=== PATIENT | female | born 1945 | race Caucasian/White ===

== ENCOUNTER → 2016-08-24 | Outpatient (CLI) | payer MEDICARE, BC ==
[~2016-08-24] MED LIST: Aspirin Chew PO; BENZ100 PO; BISA10SU8 PR; BRIL90TA PO; CARV6.25 PO; CELE200C PO; CETI10 PO; FOLI1 PO; GABA300C3 PO; ISOS30TA3 PO; LEFL20TA7 PO; LEUC5TAB PO; LIPI40TA PO; METH2.5 PO; OMEP20TA39 PO; OMEP40CA2 PO; PHEN12.5 PO; PRED1 PO; PROM25TA5 PO; SYMB160A INH; SYMB80AE INH; TRAM50TA PO; TRAZ100 PO; TRAZ50TA12 PO; VESI5TAB PO; VITATAB25 PO; ZITH250T PO
[2016-08-24 16:46] LABS: HEMATOCRIT 40.3 % (35.0-46.0); MEAN CELL VOLUME 94.5 FL (80.0-100.0); MEAN CORPUSCULAR HEMOGLOBIN 31.8 PG (27.0-34.0); MEAN CORPUSCULAR HGB CONC 33.7 % (32.0-36.0); PLATELET COUNT 294 TH/MM3 (150-450); RED BLOOD COUNT 4.27 MIL/MM3 (4.00-5.30); RED CELL DISTRIBUTION WIDTH 13.7 % (11.6-17.2); REVIEW FLAG FINAL; WHITE BLOOD COUNT 8.1 TH/MM3 (4.0-11.0)
[2016-08-24 17:02] LABS: ANION GAP 8 MEQ/L (5-15); AST (GOT) 16 U/L (15-37); BLOOD UREA NITROGEN 16 MG/DL (7-18); CHLORIDE 103 MEQ/L (98-107); GLOMERULAR FILTRATION RATE 85 ML/MIN (>89); POTASSIUM 3.8 MEQ/L (3.5-5.1); SODIUM (NA) 140 MEQ/L (136-145)
[2016-08-24 17:05] LABS: ALKALINE PHOSPHATASE 69 U/L (45-117); ALT (GPT) 22 U/L (10-53); TOTAL BILIRUBIN ADULT 0.4 MG/DL (0.2-1.0)
[2016-08-24 17:14] LABS: WESTERGREN SEDIMENTATION RATE 10 mm/hr (0-30)
== END ==
LOC: PLAB 14:10
PROVIDERS: ATTEND Internal Medicine Rheumatology
DX: M06.89 Other specified rheumatoid arthritis, multiple sites (principal); Z79.899 Other long term (current) drug therapy
CPT/HCPCS: 36415; 80053; 85027; 85652

== ENCOUNTER 2016-10-04 09:12 | Inpatient (IN) | payer MEDICARE, BC ==
[2016-10-04] VITALS (9 sets, daily range): BP systolic 135–169; BP diastolic 69–76; PULSE 70–94; RESP 16–22; TEMP 97.2–99.1; O2SAT 96–100
[~2016-10-04] VITALS: Ht 162.6 cm; Wt 80.5 kg
[~2016-10-04 09:12] MED LIST changes: -Aspirin Chew PO; -BENZ100 PO; -BRIL90TA PO; -CARV6.25 PO; -ISOS30TA3 PO; -LIPI40TA PO; -OMEP40CA2 PO; -SYMB80AE INH; -TRAZ50TA12 PO
[2016-10-04] MEDS ORDERED: ASPIRIN 325 MG TAB PO ONE (09:30)
[2016-10-04] MEDS ORDERED: SODIUM CHLORIDE 0.9% FLUSH 5 ML FLUSH IVF PRN (09:30)
--- NOTE | 2016-10-04 09:33 | PD ---
HPI Chief Complaint: Chest Pain Time Seen by Provider: 09:17 Travel History International Travel<30 days: No Contact w/Intl Traveler<30days: No Traveled to known affect area: No History of Present Illness HPI The patient was seen and examined in the presence of the nurse. She complains of chest pain. Duration is one week. It is intermittent spells of about 30 minutes. Non-exertionally induced. Located in center and low sternum. Feels like an aching, or that someone is punching her. No history of cardiac disease. She is asthmatic but not short of breath. Has had a dry cough for almost a month. No fevers. Symptoms are of moderate severity. No alleviating factors. PFSH Past Medical History Arthritis: Yes (R/A) COPD: Yes Diminished Hearing: No GERD: Yes Genitourinary: Yes (bladder issues) Respiratory: Yes (ASTHMA) Menopausal: Yes Social History Alcohol Use: No Tobacco Use: No Substance Use: No Allergies-Medications (Allergen,Severity, Reaction): Coded Allergies: Doxycycline (Unverified Allergy, Severe, Nausea/Vomiting, 10/04/16) Codeine (Verified Allergy, Intermediate, GI UPSET, 10/04/16) Cymbalta (Verified Allergy, Intermediate, ITCHING, 10/04/16) Oxycontin (Unverified Allergy, Unknown, Nausea/Vomiting, 10/04/16) Reported Meds & Prescriptions Reported Meds & Active Scripts Active Reported Celebrex (Celecoxib) 200 Mg Cap 200 Mg PO HS Tramadol (Tramadol HCl) 50 Mg Tab 100 Mg PO Q8HR PRN Trazodone (Trazodone HCl) 50 Mg Tab 50 Mg PO HS Omeprazole 40 Mg Cap 40 Mg PO BID Symbicort Inh (Budesonide/Formoterol Fumarate) 80-4.5 Mcg/Act Aero 1 Puff INH Q12HR Review of Systems General / Constitutional: No: Fever Eyes: No: Visual changes HENT: No: Headaches Cardiovascular: Positive: Chest Pain or Discomfort Respiratory: Positive: Cough, No: Shortness of Breath Gastrointestinal: No: Abdominal Pain Genitourinary: No: Dysuria Musculoskeletal: No: Pain Skin: No Rash Neurologic: No: Weakness Psychiatric: No: Depression Endocrine: No: Polydipsia Hematologic/Lymphatic: No: Easy Bruising Physical Exam Narrative GENERAL: Well-nourished, well-developed patient in no apparent distress. SKIN: Warm and dry. HEAD: Atraumatic. Normocephalic. EYES: Pupils equal and round. No scleral icterus. No injection or drainage. ENT: No nasal bleeding or discharge. Mucous membranes pink and moist. NECK: Trachea midline. No JVD. CARDIOVASCULAR: Regular rate and rhythm. No murmur appreciated. RESPIRATORY: No accessory muscle use. Clear to auscultation. Breath sounds equal bilaterally. GASTROINTESTINAL: Abdomen soft, non-tender, nondistended. Hepatic and splenic margins not palpable. MUSCULOSKELETAL: No obvious deformities. No clubbing. No cyanosis. No edema. NEUROLOGICAL: Awake and alert. No obvious cranial nerve deficits. Motor grossly within normal limits. Normal speech. PSYCHIATRIC: Appropriate mood and affect; insight and judgment normal. Data Data Last Documented VS Vital Signs Date Time Temp Pulse Resp B/P Pulse Ox O2 Delivery O2 Flow Rate FiO2 10/04/16 10:51 70 16 165/69 100 Room Air 10/04/16 09:15 98.0 Orders Electrocardiogram (10/04/16 09:23) Basic Metabolic Panel (Bmp) (10/04/16 09:23) Ckmb (Isoenzyme) Profile (10/04/16 09:23) Complete Blood Count With Diff (10/04/16 09:23) Prothrombin Time / Inr (Pt) (10/04/16 09:23) Act Partial Throm Time (Ptt) (10/04/16 09:23) Troponin I (10/04/16 09:23) Chest, Single Ap (10/04/16 09:23) Ecg Monitoring (10/04/16 09:23) Iv Access Insert/Monitor (10/04/16 09:23) Oximetry (10/04/16 09:23) Aspirin (Aspirin) (10/04/16 09:30) Sodium Chloride 0.9% Flush (Ns Flush) (10/04/16 09:30) Place In Observation (10/04/16 ) Vital Signs (Adult) Q4H (10/04/16 10:42) Activity Bed Rest (10/04/16 10:42) Sign Writer Hand / Telemetry .CONTINUOUS (10/04/16 10:42) Intake + Output CHAYO.QSHIFT (10/04/16 10:42) Diet Heart Healthy (10/04/16 Lunch) Sodium Chloride 0.9% Flush (Ns Flush) (10/04/16 10:45) Sodium Chloride 0.9% Flush (Ns Flush) (10/04/16 21:00) Acetaminophen (Tylenol) (10/04/16 10:45) Ondansetron Inj (Zofran Inj) (10/04/16 10:45) Basic Metabolic Panel (Bmp) (10/05/16 06:00) Complete Blood Count With Diff (10/05/16 06:00) Creatine Kinase (Cpk) (10/04/16 10:42) Creatine Kinase (Cpk) (10/04/16 16:42) Troponin I (10/04/16 10:42) Troponin I (10/04/16 16:42) Resp Oxygen Jasson C Titrat 1-4 L (10/04/16 ) Heparin Inj (Heparin Inj) (10/04/16 12:00) Naloxone Inj (Narcan Inj) (10/04/16 10:45) Consult Cardiology (10/04/16 ) Labs Laboratory Tests Test 10/04/16 09:30 White Blood Count 6.7 TH/MM3 Red Blood Count 4.22 MIL/MM3 Hemoglobin 13.5 GM/DL Hematocrit 40.1 % Mean Corpuscular Volume 95.0 FL Mean Corpuscular Hemoglobin 32.0 PG Mean Corpuscular Hemoglobin 33.7 % Concent Red Cell Distribution Width 13.6 % Platelet Count 230 TH/MM3 Mean Platelet Volume 8.2 FL Neutrophils (%) (Auto) % Lymphocytes (%) (Auto) % Monocytes (%) (Auto) % Eosinophils (%) (Auto) % Basophils (%) (Auto) % Neutrophils # (Auto) TH/MM3 Lymphocytes # (Auto) TH/MM3 Monocytes # (Auto) TH/MM3 Eosinophils # (Auto) TH/MM3 Basophils # (Auto) TH/MM3 CBC Comment AUTO DIFF Differential Total Cells 100 Counted Neutrophils % (Manual) 65 % Band Neutrophils % 2 % Lymphocytes % 26 % Monocytes % 6 % Basophils % 1 % Neutrophils # (Manual) 4.5 TH/MM3 Differential Comment FINAL DIFF MANUAL Platelet Estimate NORMAL Platelet Morphology Comment NORMAL Red Cell Morphology Comment NORMAL Prothrombin Time 10.5 SEC Prothromb Time International 1.0 RATIO Ratio Activated Partial 32.0 SEC Thromboplast Time Sodium Level 143 MEQ/L Potassium Level 3.6 MEQ/L Chloride Level 104 MEQ/L Carbon Dioxide Level 28.6 MEQ/L Anion Gap 10 MEQ/L Blood Urea Nitrogen 7 MG/DL Creatinine 0.72 MG/DL Estimat Glomerular Filtration 80 ML/MIN Rate Random Glucose 106 MG/DL Calcium Level 9.3 MG/DL Total Creatine Kinase 79 U/L Troponin I 0.11 NG/ML MDM Medical Decision Making Medical Screen Exam Complete: Yes Emergency Medical Condition: Yes Medical Record Reviewed: Yes Differential Diagnosis Differential diagnosis includes VT, angina, pericarditis, pleurisy, GERD, anxiety. Narrative Course I have reviewed the patient's electronic medical record. Patient was seen once in 2014 and once in 2016 for cough/bronchitis problems IV placed I reviewed the EKG which shows sinus rhythm with no ST elevation I reviewed the chest x-ray which is normal Extended cardiac monitoring shows sinus rhythm without ectopy CBC is normal Metabolic profile is normal CK is normal Troponin is 0.11 Coagulation studies are normal I gave her an aspirin Patient having chest pain and will require inpatient evaluation. She is a telemetry observation in as recommended by the hospitalist Dr. Kaplan. She is currently pain-free Diagnosis Primary Impression: Chest pain in adult Admitting Information Admitting Physician Requests: Observation Merritt Ravi MD Oct 04, 2016 09:33
[2016-10-04 09:39] LABS: HEMATOCRIT 40.1 % (35.0-46.0); MEAN CORPUSCULAR HGB CONC 33.7 % (32.0-36.0); PLATELET COUNT 230 TH/MM3 (150-450); RED BLOOD COUNT 4.22 MIL/MM3 (4.00-5.30); RED CELL DISTRIBUTION WIDTH 13.6 % (11.6-17.2); WHITE BLOOD COUNT 6.7 TH/MM3 (4.0-11.0)
[2016-10-04 09:40] LABS: HEMO FLAGS AUTO DIFF
--- NOTE | 2016-10-04 09:44 | RADHPO ---
EXAM DATE/TIME: 10/04/2016 09:37 [facility] COMPARISON: No previous studies available for comparison. INDICATIONS : Chest pain. MEDICAL HISTORY : asthma SURGICAL HISTORY : None. ENCOUNTER: Initial ACUITY: 1 week PAIN SCORE: 5/10 LOCATION: Bilateral chest FINDINGS: A single view of the chest demonstrates the lungs to be symmetrically aerated without evidence of mas s, infiltrate or effusion. The cardiomediastinal contours are unremarkable. Osseous structures are intact. CONCLUSION: No acute disease. Gustavo Flannery MD on October 04, 2016 at 9:42 Board Certified Radiologist. This report was verified electronically.
[2016-10-04] MEDS ORDERED: TRAZ50TA12 PO (09:53)
[2016-10-04] MEDS ORDERED: OMEP40CA2 PO (09:53)
[2016-10-04] MEDS ORDERED: SYMB80AE INH (09:53)
[2016-10-04] MEDS ORDERED: TRAM50TA PO (09:53)
[2016-10-04] MEDS ORDERED: CELE200C PO (09:53)
[2016-10-04 09:56] LABS: PROTHROMBIN TIME - PATIENT 10.5 SEC (9.8-11.6)
[2016-10-04 09:57] LABS: BICARBONATE 28.6 MEQ/L (21.0-32.0)
[2016-10-04 09:59] LABS: POTASSIUM 3.6 MEQ/L (3.5-5.1)
[2016-10-04 10:03] LABS: BANDS 2 % (0-6); BASOPHILS 1 % (0-2); NEUTROPHIL # MANUAL DIFF 4.5 TH/MM3 (1.8-7.7); PLATELET ESTIMATE SMEAR NORMAL (NORMAL); PLATELET MORPHOLOGY NORMAL (NORMAL); POLYS (SEG NEUTROPHILS) 65 % (16-70); SCAN/DIFF FINAL DIFF MANUAL; WBC DIFF SAMPLE 100
[2016-10-04] MEDS ORDERED: SODIUM CHLORIDE 0.9% FLUSH 5 ML FLUSH FLUSH PRN (10:45)
[2016-10-04] MEDS ORDERED: ACETAMINOPHEN 325 MG TAB PO PRN (10:45)
[2016-10-04] MEDS ORDERED: NALOXONE HCL 0.4 MG/ML AMP IV PRN (10:45)
[2016-10-04] MEDS ORDERED: HEPARIN SODIUM - SQ 10,000 UNITS/ML VIAL SQ SCH (12:00)
[2016-10-04] MEDS: PANTOPRAZOLE SOD 40 MG DELAYED RELEASE TAB PO SCH ×2 (12:45→21:47)
[2016-10-04] MEDS ORDERED: ENALAPRILAT 1.25 MG/ML VIAL IV PUSH PRN (12:45)
[2016-10-04] MEDS: BUDESONIDE-FORMOTEROL 80/4.5 MCG INHALER INH SCH ×2 (13:00→21:00)
[2016-10-04 16:58] LABS: HEMATOCRIT 37.8 % (35.0-46.0); MEAN CELL VOLUME 93.9 FL (80.0-100.0); MEAN CORPUSCULAR HEMOGLOBIN 32.1 PG (27.0-34.0); MEAN CORPUSCULAR HGB CONC 34.1 % (32.0-36.0); PLATELET COUNT 227 TH/MM3 (150-450); RED BLOOD COUNT 4.02 MIL/MM3 (4.00-5.30); REVIEW FLAG FINAL; WHITE BLOOD COUNT 8.4 TH/MM3 (4.0-11.0)
[2016-10-04] MEDS ORDERED: HEPARIN 25,000 UNITS-D5W 250 ML - PREMIX IV SCH (17:00)
[2016-10-04] MEDS ORDERED: HEPARIN SODIUM - IV 10,000 UNITS/10 ML VIAL IV ONE (17:00)
[2016-10-04] MEDS ORDERED: HEPARIN SODIUM - IV 10,000 UNITS/10 ML VIAL IV PRN ×2 (17:00)
[2016-10-04 17:26] LABS: APTT (PATIENT) 33.8 SEC (24.3-30.1); PROTHROMBIN TIME - PATIENT 10.8 SEC (9.8-11.6)
[2016-10-04] MEDS: ONDANSETRON HCL 4 MG/2 ML VIAL IVP PRN (18:34)
[2016-10-04] MEDS: SODIUM CHLORIDE 0.9% FLUSH 5 ML FLUSH FLUSH SCH (21:00)
[2016-10-04] MEDS: MORPHINE SULFATE 4 MG/ML INJ IV PUSH PRN (21:47)
[2016-10-04] MEDS: traZODone HCL 50 MG TAB PO SCH (21:47)
[2016-10-05] VITALS (25 sets, daily range): BP systolic 126–147; BP diastolic 63–71; PULSE 60–90; RESP 16–20; TEMP 98.1–99.3; O2SAT 96–100
[2016-10-05 00:41] LABS: APTT (PATIENT) 123.9 SEC (24.3-30.1)
[2016-10-05] MEDS: MORPHINE SULFATE 4 MG/ML INJ IV PUSH PRN ×3 (03:18→15:59)
[2016-10-05 03:49] LABS: BICARBONATE 26.8 MEQ/L (21.0-32.0); POTASSIUM 3.4 MEQ/L (3.5-5.1)
[2016-10-05 03:53] LABS: WHITE BLOOD COUNT 6.9 TH/MM3 (4.0-11.0)
[2016-10-05 03:54] LABS: AUTOMATED NEUTROPHIL # 3.4 TH/MM3 (1.8-7.7); BASOPHIL # 0.1 TH/MM3 (0-0.2); BASOPHIL % 1.3 % (0.0-2.0); EOSINOPHIL # 0.1 TH/MM3 (0-0.4); EOSINOPHIL % 1.1 % (0.0-4.0); HEMATOCRIT 36.4 % (35.0-46.0); HEMO FLAGS DIFF FINAL; LYMPH % 38.5 % (9.0-44.0); LYMPHOCYTE # 2.7 TH/MM3 (1.0-4.8); MEAN CELL VOLUME 94.3 FL (80.0-100.0); MEAN CORPUSCULAR HEMOGLOBIN 32.6 PG (27.0-34.0); MEAN CORPUSCULAR HGB CONC 34.6 % (32.0-36.0); MONO % 10.2 % (0.0-8.0); NEUT % 48.9 % (16.0-70.0); PLATELET COUNT 220 TH/MM3 (150-450); RED BLOOD COUNT 3.86 MIL/MM3 (4.00-5.30); RED CELL DISTRIBUTION WIDTH 14.3 % (11.6-17.2)
[2016-10-05 04:05] LABS: APTT (PATIENT) 117.1 SEC (24.3-30.1)
[2016-10-05 06:20] LABS: APTT (PATIENT) 59.2 SEC (24.3-30.1)
[2016-10-05] MEDS: PANTOPRAZOLE SOD 40 MG DELAYED RELEASE TAB PO SCH ×2 (08:46→21:26)
[2016-10-05] MEDS: BUDESONIDE-FORMOTEROL 80/4.5 MCG INHALER INH SCH ×2 (08:47→21:27)
[2016-10-05] MEDS: SODIUM CHLORIDE 0.9% FLUSH 5 ML FLUSH FLUSH SCH ×2 (08:47→21:00)
[2016-10-05] MEDS ORDERED: ATORVASTATIN 40 MG TAB PO SCH (09:00)
--- NOTE | 2016-10-05 10:29 | MH ---
cc: CACHORRO JACKSON MD DATE OF ADMISSION 10/04/2016 CHIEF COMPLAINT Chest pain HISTORY OF PRESENT ILLNESS This is a 71-year-old female with a past medical-surgical history significant for arthritis, COPD, history of gastroesophageal reflux disease, a urinary bladder issue, history of asthma, who came to the ER at [facility] complaining of some chest pain. This pain is going on for the last one week. It is an intermittent spell about 30 minutes known exertional induced located in the center and lower sternal feeling like an aching and has someone punching. No history of heart disease. She also has a history of asthma. She also has a dry cough for almost a month. No fever or chills. When I examined the patient, the patient had a very mild chest pain at the time of examination and denies any other symptoms or complaints. The patient is planned to go for a cardiac cath by Dr. Church and nurse Perla was present at the bedside during the history and physical examination. Other than that, nothing significant. PAST MEDICAL/SURGICAL HISTORY As dictated above. SOCIAL HISTORY Denies smoking, drinking or taking any drugs. Lives at home. She is retired. FAMILY HISTORY Significant for cancer. ALLERGIES DOXYCYCLINE, CODEINE, CYMBALTA, OXYCONTIN. MEDICATIONS 1. Celebrex 200 mg p.o. at bedtime 2. Tramadol 50 mg p.o. q8-hour 3. Trazodone 50 mg p.o. at bedtime 4. Omeprazole 40 mg p.o. daily 5. Symbicort 80/4.5 one puff inhalation q. 12-hour REVIEW OF SYSTEMS All review of systems are negative except for mild chest discomfort. PHYSICAL EXAMINATION This is a 71-year female sitting on the bed not in acute distress. VITAL SIGNS: Temperature 98.2, heart rate 73, respirations 16, blood pressure 138/71, O2 saturation 100% room air. HEENT: Normocephalic, atraumatic. EOMI. PERRL. Oral mucosa moist. NECK: Supple. No visible thyromegaly or neck mass. Trachea central. CVS: Regular rate and rhythm. Respirations clear to auscultation bilaterally. ABDOMEN: Soft, nontender. Bowel sounds audible. EXTREMITIES: No cyanosis or clubbing. Full range of motion of all extremities. NEUROLOGIC: Awake, alert, and oriented x4. No focal deficits. SKIN: Warm and dry. PSYCH: The patient is cooperative. Mood and affect is normal. LABORATORY DATA Include CBC is totally unremarkable. BMP totally unremarkable except for potassium 3.4 low, GFR 88 low. Cardiac enzymes troponin-I 0.11, 0.58 and 0.85 all high. PT 10.8, INR 1.0, APTT 59.2. Chest x-ray was done shows no acute disease. ASSESSMENT/PLAN This is a 71-year female who came to the ER diagnosed with: 1. Chest pain, rule out acute coronary syndrome. The patient has most likely [id number] myocardial infarction. The patient had a high troponin. The patient is on heparin GTT. Start the patient on aspirin 81 mg p.o. daily. The patient is planned to go to cardiac catheterization done by Dr. Church today. We will monitor the patient. 2. History of hyperlipidemia. Continue with Lipitor 40 mg p.o. daily. 3. History of insomnia. Continue Trazodone 50 mg p.o., h.s. 4. History of gastroesophageal reflux disease. Protonix 40 mg p.o. b.i.d. 5. History of COPD. Continue with Symbicort one puff inhalation [id number]. 6. History of arthritis. Continue with Celebrex 200 mg h.s. 7. DVT prophylaxis heparin GTT 8. GI prophylaxis Protonix 40 mg p.o. daily. 9. We are going to manage the patient on a daily basis and make Recommendations on a daily basis. Cachorro Jackson MD EA/JOLLY /9:51 AM /10:06 AM
[2016-10-05] MEDS: BENZONATATE 100 MG CAP PO PRN (10:52)
[2016-10-05] MEDS ORDERED: HEPARIN-NS/PF INJ 500 ML ONE ×2 (13:26→14:30)
[2016-10-05] MEDS ORDERED: MIDAZOLAM HCL 2 MG/2 ML VIAL ONE ×2 (13:26→14:46)
[2016-10-05] MEDS ORDERED: HEPARIN SODIUM - IV 10,000 UNITS/10 ML VIAL ONE (13:56)
[2016-10-05] MEDS ORDERED: TICAGRELOR 90 MG TAB PO ONE (15:07)
[2016-10-05] MEDS ORDERED: SODIUM CHLOR 0.9% 1000 ML INJ 1,000 ML IV SCH (16:22)
[2016-10-05] MEDS: ONDANSETRON HCL 4 MG/2 ML VIAL IVP PRN (16:22)
[2016-10-05] MEDS ORDERED: MISC INFORMATION XX ONE (16:30)
[2016-10-05] MEDS ORDERED: IOHEXOL 350 MG/ML 100 ML BTL (for Cath Lab) OTHER ONE (16:42)
[2016-10-05] MEDS ORDERED: IOHEXOL 350 MG/ML 50 ML BTL (for Cath Lab) OTHER ONE (16:42)
[2016-10-05] MEDS: ATORVASTATIN 80 MG TAB PO SCH (21:26)
[2016-10-05] MEDS: CARVEDILOL 6.25 MG TAB PO SCH (21:26)
[2016-10-05] MEDS: traZODone HCL 50 MG TAB PO SCH (21:26)
[2016-10-05 21:52] LABS: AUTOMATED NEUTROPHIL # 7.6 TH/MM3 (1.8-7.7); BASOPHIL # 0.1 TH/MM3 (0-0.2); BASOPHIL % 0.8 % (0.0-2.0); EOSINOPHIL % 0.3 % (0.0-4.0); HEMATOCRIT 38.2 % (35.0-46.0); HEMO FLAGS DIFF FINAL; LYMPH % 18.8 % (9.0-44.0); LYMPHOCYTE # 1.9 TH/MM3 (1.0-4.8); MEAN CELL VOLUME 93.8 FL (80.0-100.0); MEAN CORPUSCULAR HEMOGLOBIN 32.7 PG (27.0-34.0); MEAN CORPUSCULAR HGB CONC 34.8 % (32.0-36.0); MONO % 6.7 % (0.0-8.0); NEUT % 73.4 % (16.0-70.0); PLATELET COUNT 265 TH/MM3 (150-450); RED BLOOD COUNT 4.08 MIL/MM3 (4.00-5.30); RED CELL DISTRIBUTION WIDTH 14.4 % (11.6-17.2); WHITE BLOOD COUNT 10.3 TH/MM3 (4.0-11.0)
[2016-10-06] VITALS (24 sets, daily range): BP systolic 104–137; BP diastolic 48–68; PULSE 66–92; RESP 16–20; TEMP 97.9–98.5; O2SAT 96–100
[2016-10-06] MEDS: ISOSORBIDE MONONITRATE 30 MG TAB PO SCH (05:49)
[2016-10-06] MEDS: TICAGRELOR 90 MG TAB PO SCH ×3 (05:49→21:14)
[2016-10-06 06:51] LABS: AUTOMATED NEUTROPHIL # 5.8 TH/MM3 (1.8-7.7); BASOPHIL % 0.6 % (0.0-2.0); EOSINOPHIL # 0.1 TH/MM3 (0-0.4); EOSINOPHIL % 0.7 % (0.0-4.0); HEMATOCRIT 34.7 % (35.0-46.0); HEMO FLAGS DIFF FINAL; LYMPH % 18.3 % (9.0-44.0); LYMPHOCYTE # 1.5 TH/MM3 (1.0-4.8); MEAN CELL VOLUME 94.6 FL (80.0-100.0); MEAN CORPUSCULAR HEMOGLOBIN 31.8 PG (27.0-34.0); MEAN CORPUSCULAR HGB CONC 33.7 % (32.0-36.0); MONO % 8.8 % (0.0-8.0); NEUT % 71.6 % (16.0-70.0); PLATELET COUNT 230 TH/MM3 (150-450); RED BLOOD COUNT 3.67 MIL/MM3 (4.00-5.30); RED CELL DISTRIBUTION WIDTH 14.1 % (11.6-17.2); WHITE BLOOD COUNT 8.2 TH/MM3 (4.0-11.0)
--- NOTE | 2016-10-06 07:20 | MA ---
cc: GATITO SANCHEZ DATE: 10/05/2016 INDICATIONS: Non-ST elevation myocardial infarction. Class IV angina. PROCEDURE PERFORMED: 1. Retrograde left heart catheterization with left ventriculography and selective coronary angiography. 2. Angioplasty and stenting of the proximal and mid-right coronary artery. 3. Moderate sedation. ACCESS SITE: Right femoral artery. EQUIPMENT USED: A 5-Angolan pigtail catheter, 5-Angolan JL4 and AR modified coronary artery catheters. AR1 guide with side holes. Whisper and BMW wires. 1.5 and 2.0 balloons for pre-dilation. 2.5 x 30 Resolute stent at 9 to the mid-RCA. 2.5 x 30 Resolute stent at 9 to the proximal RCA. 2.5 x 22-mm Resolute at 12 at proximal and ostial RCA. MEDICATIONS: 1. Versed IV. 2. Fentanyl IV. 3. Heparin IV. 4. Nitroglycerin IC. 5. Brilinta 180 mg p.o. CONTRAST: Omnipaque 150 cc. COMPLICATIONS: None. ESTIMATED BLOOD LOSS: Less than 10 cc. METHOD OF HEMOSTASIS: AngioSeal closure. RESULTS A. HEMODYNAMICS: Heart rate 75 beats per minute. Left ventricular end-diastolic pressure 15 mmHg. Left ventricle 125/15. Aorta 125/64/92. B. LEFT VENTRICULOGRAPHY: Left ventricular ejection fraction 60%. Wall motion normal. No mitral regurgitation. C. CORONARY ANGIOGRAPHY: The left main coronary artery is patent. The left anterior descending coronary artery had 20% stenosis in the proximal portion and 95% stenosis in the mid-portion distally to a large first diagonal branch. D1 has 80% stenosis at its ostium. The left circumflex artery has 40% stenosis in the proximal portion. OM1 is patent. The right coronary artery has 99% stenosis in the proximal portion and 90% stenosis in the mid-portion. PDA patent. PLV has 30% stenosis in the mid-portion. The stenosis in the proximal RCA was 30-mm long. Pre-ARJUN flow 1, post-ARJUN flow 3, post-stenosis 0. The stenosis in the mid-RCA was 25-mm long. Pre-ARJUN flow 1, post-ARJUN flow 3, post-stenosis 0. The distal RCA initially filled by left to right collaterals. Post-intervention angiography revealed excellent patency of the stented segment and no evidence of dissection, thrombosis or distal embolization. DIAGNOSES: 1. Non-ST elevation myocardial infarction. 2. Severe multivessel coronary artery disease. 3. Preserved left ventricular systolic function. 4. Successful angioplasty and stenting of the proximal and mid-right coronary artery. DISPOSITION: Ms. Rivera underwent successful angioplasty and stenting of the severely diseased proximal and mid-right coronary artery. This was a technically difficult procedure. 150 cc of contrast was used. Due to the length of the procedure and contrast exposure, the PCI of the left anterior descending artery will be postponed to decrease the chance of contrast nephropathy. We will continue therapy with Brilinta and aspirin. We will continue aggressive modification of the cardiac risk factors. MD ESTELLE Cheng/SSB /3:21 PM /7:01 AM MTDAgnes
[2016-10-06 07:24] LABS: ALKALINE PHOSPHATASE 51 U/L (45-117); ALT (GPT) 26 U/L (10-53); ANION GAP 10 MEQ/L (5-15); AST (GOT) 31 U/L (15-37); BICARBONATE 24.5 MEQ/L (21.0-32.0); BLOOD UREA NITROGEN 6 MG/DL (7-18); CHLORIDE 106 MEQ/L (98-107); CREATINE KINASE 293 U/L (26-192); GLOMERULAR FILTRATION RATE 81 ML/MIN (>89); HDL CHOLESTEROL 58.9 MG/DL (40.0-60.0); LDL CHOLESTEROL 117 MG/DL (0-99); POTASSIUM 3.3 MEQ/L (3.5-5.1); SODIUM (NA) 140 MEQ/L (136-145); TOTAL BILIRUBIN ADULT 1.2 MG/DL (0.2-1.0)
--- NOTE | 2016-10-06 07:30 | HHI.PR ---
Subjective History of Present Illness Patient S/P cardiac catherization Non-ST elevation myocardial infarction. Severe multivessel coronary artery disease. Preserved left ventricular systolic function. Successful angioplasty and stenting of the proximal and mid-right coronary artery. C/O Anxiety started on Ativan. Review of Systems Constitutional Constitutional: Fatigue, Weakness Vitals/Results Intake & Output 10/05/16 10/05/16 10/06/16 15:00 23:00 07:00 Intake Total 1560 ml 1480 ml Output Total 1200 ml Balance 360 ml 1480 ml Intake Oral 480 ml 480 ml IV Total 1080 ml 1000 ml Output Urine Total 1200 ml # Voids 4 # Bowel Movements 0 Vital Signs Vital Signs Date Time Temp Pulse Resp B/P Pulse Ox O2 Delivery O2 Flow Rate FiO2 10/06/16 04:03 98.0 80 137/60 99 10/06/16 03:00 74 10/06/16 00:00 98.4 74 110/62 98 10/05/16 23:00 66 10/05/16 20:00 98.1 89 147/68 97 10/05/16 19:00 77 10/05/16 18:15 75 10/05/16 18:00 81 10/05/16 17:02 79 10/05/16 16:13 98.4 78 18 130/67 98 10/05/16 16:00 77 10/05/16 13:15 97 21 10/05/16 12:10 74 10/05/16 11:05 99.3 79 18 137/64 100 10/05/16 11:05 78 10/05/16 11:00 77 10/05/16 10:01 75 10/05/16 09:50 63 10/05/16 09:00 76 10/05/16 08:00 60 10/05/16 08:00 98.2 73 16 138/71 100 CBC/BMP: 10/06/16 0623 10/06/16 0628 Lab Results Laboratory Tests Test 10/05/16 10/06/16 10/06/16 21:35 06:23 06:28 White Blood Count 10.3 TH/MM3 8.2 TH/MM3 Red Blood Count 4.08 MIL/MM3 3.67 MIL/MM3 Hemoglobin 13.3 GM/DL 11.7 GM/DL Hematocrit 38.2 % 34.7 % Mean Corpuscular Volume 93.8 FL 94.6 FL Mean Corpuscular Hemoglobin 32.7 PG 31.8 PG Mean Corpuscular Hemoglobin 34.8 % 33.7 % Concent Red Cell Distribution Width 14.4 % 14.1 % Platelet Count 265 TH/MM3 230 TH/MM3 Mean Platelet Volume 8.7 FL 8.8 FL Neutrophils (%) (Auto) 73.4 % 71.6 % Lymphocytes (%) (Auto) 18.8 % 18.3 % Monocytes (%) (Auto) 6.7 % 8.8 % Eosinophils (%) (Auto) 0.3 % 0.7 % Basophils (%) (Auto) 0.8 % 0.6 % Neutrophils # (Auto) 7.6 TH/MM3 5.8 TH/MM3 Lymphocytes # (Auto) 1.9 TH/MM3 1.5 TH/MM3 Monocytes # (Auto) 0.7 TH/MM3 0.7 TH/MM3 Eosinophils # (Auto) 0.0 TH/MM3 0.1 TH/MM3 Basophils # (Auto) 0.1 TH/MM3 0.0 TH/MM3 CBC Comment DIFF FINAL DIFF FINAL Differential Comment Sodium Level 140 MEQ/L Potassium Level 3.3 MEQ/L Chloride Level 106 MEQ/L Carbon Dioxide Level 24.5 MEQ/L Anion Gap 10 MEQ/L Blood Urea Nitrogen 6 MG/DL Creatinine 0.71 MG/DL Estimat Glomerular Filtration 81 ML/MIN Rate Random Glucose 112 MG/DL Calcium Level 8.4 MG/DL Total Bilirubin 1.2 MG/DL Aspartate Amino Transf 31 U/L (AST/SGOT) Alanine Aminotransferase 26 U/L (ALT/SGPT) Alkaline Phosphatase 51 U/L Total Creatine Kinase 293 U/L Total Protein 5.9 GM/DL Albumin 3.4 GM/DL Triglycerides Level 109 MG/DL Cholesterol Level 198 MG/DL LDL Cholesterol 117 MG/DL HDL Cholesterol 58.9 MG/DL Cholesterol/HDL Ratio 3.36 RATIO Physical Exam General General Appearance: Well Developed, Well Nourished, No Acute Distress, Comfortable Eyes Eye Exam: Pupils Equal, Pupils Reactive, Sclera White, Extraocular Movement Intact Throat Throat Exam: Oral Mucosa [place] & Moist, Oral Pharynx Normal Neck Neck Exam: Neck Supple, Trachea Midline Pulmonary Resp Exam: Clear Bilaterally, Breath Sounds Equal, No Distress Cardiology CV Exam: Regular, Normal Sinus Rhythm Gastrointestinal/Abdomen GI Exam: Soft, Non-Tender, Bowel Sounds Present Musculoskeletal MS Exam: Normal Tone Integumentary Skin Exam: Clear, Warm, Dry, Intact, Normal Turgor Extremeties Extremities Exam: No Edema Neurologic Neuro Exam: Alert, Awake, Oriented, Speech Clear, Moving All Extremities, No Focal Deficits Psychiatric Psych Exam: Appropriate Responses VTE Prophylaxis VTE Prophylaxis Meds: Heparin PUD Prophylasis PUD Prophylaxis: Protonix Assessment/Plan Assessment/Plan ASSESSMENT/PLAN This is a 71-year female who came to the ER diagnosed with: 1. Chest pain, rule out acute coronary syndrome. The patient has most likely [id number] myocardial infarction. The patient had a high troponin. The patient is on heparin GTT. the patient on aspirin 81 mg p.o. daily. The patient S/P cardiac catherization Non-ST elevation myocardial infarction. Severe multivessel coronary artery disease. Preserved left ventricular systolic function. Successful angioplasty and stenting of the proximal and mid-right coronary artery. 2. History of hyperlipidemia. Continue with Lipitor 40 mg p.o. daily. 3. History of insomnia. Continue Trazodone 50 mg p.o., h.s. 4. History of gastroesophageal reflux disease. Protonix 40 mg p.o. b.i.d. 5. History of COPD. Continue with Symbicort one puff inhalation [id number]. 6. History of arthritis. Continue with Celebrex 200 mg h.s. 7. DVT prophylaxis heparin GTT 8. GI prophylaxis Protonix 40 mg p.o. daily. 9. Anxiety started on Ativan. We are going to manage the patient on a daily basis and make Recommendations on a daily basis. Discussed Condition with: Patient Cachorro Randolph MD Oct 06, 2016 07:30
[2016-10-06 07:41] LABS: CKMB 10.5 NG/ML (0.5-3.6)
[2016-10-06] MEDS: CARVEDILOL 6.25 MG TAB PO SCH ×2 (08:02→21:13)
[2016-10-06] MEDS: ASPIRIN 81 MG CHEW TAB PO SCH (08:02)
[2016-10-06] MEDS: PANTOPRAZOLE SOD 40 MG DELAYED RELEASE TAB PO SCH ×2 (08:02→21:13)
[2016-10-06] MEDS: oxyCODONE/ACETAMINOPHEN 5 MG/325 MG TAB PO PRN ×3 (08:03→21:13)
[2016-10-06] MEDS: BUDESONIDE-FORMOTEROL 80/4.5 MCG INHALER INH SCH ×2 (08:04→21:00)
[2016-10-06] MEDS: SODIUM CHLORIDE 0.9% FLUSH 5 ML FLUSH FLUSH SCH ×2 (08:04→21:00)
[2016-10-06] MEDS: ONDANSETRON HCL 4 MG/2 ML VIAL IVP PRN (08:23)
[2016-10-06] MEDS ORDERED: TICAGRELOR 90 MG TAB PO SCH (09:00)
--- NOTE | 2016-10-06 09:30 | EKG ---
Date Performed: 10/06/2016 Time Performed: 07:00:16 PTAGE: 71 years EKG: Sinus rhythm Leftward axis Anterolateral ST-T changes are nonspecific Low QRS voltages in precordial leads Border line ECG PREVIOUS TRACING : 10/05/2016 20.02 DOCTOR: David Sifuentes Interpretating Date/Time 10/06/2016 09:30:08
--- NOTE | 2016-10-06 10:40 | EKG ---
Date Performed: 10/05/2016 Time Performed: 20:02:36 PTAGE: 71 years EKG: Sinus rhythm Anterolateral ST-T changes are nonspecific Low QRS voltages in precordial leads Borderline ECG PREVIOUS TRACING : 10/04/2016 23.42 DOCTOR: David Sifuentes Interpretating Date/Time 10/06/2016 10:38:47
[2016-10-06] MEDS: LORazepam 0.5 MG TAB PO PRN ×2 (13:44→21:16)
--- NOTE | 2016-10-06 15:47 | RADRPT ---
EXAM DATE/TIME: 10/06/2016 14:36 [facility] COMPARISON: No previous studies available for comparison. INDICATIONS : Posterior base of neck to vertex of head pain for 1 day. RADIATION DOSE: 37.47 CTDIvol (mGy) MEDICAL HISTORY : Cardiovascular disease. SURGICAL HISTORY : None. ENCOUNTER: Initial ACUITY: 1 day PAIN SCALE: 3/10 LOCATION: cranial Posterior TECHNIQUE: Multiple contiguous axial images were obtained of the head. Using automated exposure control and adjustment of the mA and/or kV according to patient size, radiation dose was kept as low as reasonably achievable to obtain optimal diagnostic quality images. FINDINGS: CEREBRUM: The ventricles are normal for age. No evidence of midline shift, mass lesion, hemorrha ge or acute infarction. No extra-axial fluid collections are seen. POSTERIOR FOSSA: The cerebellum and brainstem are intact. The 4th ventricle is midline. The cer ebellopontine angle is unremarkable. EXTRACRANIAL: The visualized portion of the orbits is intact. SKULL: The calvaria is intact. No evidence of skull fracture. CONCLUSION: Negative CT scan of the head. Hugh Parrish MD FACR on October 06, 2016 at 15:43 Board Certified Radiologist. This report was verified electronically.
--- NOTE | 2016-10-06 17:57 | PD.CARD.PN ---
Subjective Subjective Remarks No CP or SOB Objective Medications Current Medications Medications (Trade) Dose Ordered Sig/Alejandro Route Start Time Stop Time Status Last Admin (NS Flush) 2 ml UNSCH PRN FLUSH 10/04/16 10:45 (NS Flush) 2 ml BID FLUSH 10/04/16 21:00 10/06/16 08:04 (Tylenol) 650 mg Q4H PRN PO 10/04/16 10:45 10/04/16 12:29 (Zofran Inj) 4 mg Q6H PRN IVP 10/04/16 10:45 10/06/16 08:23 (Narcan Inj) 0.4 mg UNSCH PRN IV 10/04/16 10:45 (Symbicort 80-4.5 Mcg Inh) 1 puff Q12HR INH 10/04/16 13:00 10/06/16 08:04 (Protonix) 40 mg BID PO 10/04/16 12:45 10/06/16 08:02 (Desyrel) 50 mg HS PO 10/04/16 21:00 10/05/16 21:26 (Vasotec Inj) 1.25 mg Q6H PRN IV PUSH 10/04/16 12:45 Morphine Sulfate 2 mg 2 mg Q4H PRN IV PUSH 10/04/16 12:45 10/05/16 15:59 (Heparin-D5W Inj) 250 ml @ 0 mls/hr TITRATE IV 10/04/16 17:00 10/04/16 17:06 (Heparin Inj) 5,000 units UNSCH PRN IV 10/04/16 17:00 (Heparin Inj) 2,500 units UNSCH PRN IV 10/04/16 17:00 (Tessalon) 100 mg TID PRN PO 10/05/16 04:15 10/05/16 10:52 (Aspirin Chew) 81 mg DAILY PO 10/06/16 09:00 10/06/16 08:02 (Coreg) 6.25 mg BID PO 10/05/16 21:00 10/06/16 08:02 (Lipitor) 80 mg HS PO 10/05/16 21:00 10/05/16 21:26 (Brilinta) 90 mg BID PO 10/06/16 06:00 10/06/16 08:02 (Imdur) 30 mg DAILY@07 PO 10/06/16 07:00 10/06/16 05:49 (Percocet 5-325 Mg) 1 tab Q6H PRN PO 10/05/16 20:00 10/06/16 14:09 (Ativan) 0.5 mg TID PRN PO 10/06/16 13:45 10/06/16 13:44 Vital Signs / I&O Vital Signs Date Time Temp Pulse Resp B/P Pulse Ox O2 Delivery O2 Flow Rate FiO2 10/06/16 16:31 18 10/06/16 12:20 98.5 82 16 120/67 100 10/06/16 12:00 78 10/06/16 11:00 92 10/06/16 10:00 82 10/06/16 09:13 20 10/06/16 09:00 80 10/06/16 08:15 98.2 90 18 125/68 100 10/06/16 08:00 88 10/06/16 07:15 97.9 90 20 125/68 100 10/06/16 07:00 80 10/06/16 06:00 74 10/06/16 05:00 88 10/06/16 04:03 98.0 80 137/60 99 10/06/16 04:00 76 10/06/16 03:00 74 10/06/16 02:00 74 10/06/16 01:00 66 10/06/16 00:00 98.4 74 110/62 98 10/06/16 00:00 66 10/05/16 23:00 66 10/05/16 22:00 80 10/05/16 21:00 84 10/05/16 20:00 98.1 89 147/68 97 10/05/16 20:00 90 10/05/16 19:00 77 10/05/16 18:15 75 10/05/16 18:00 81 I/O 10/05/16 10/05/16 10/05/16 10/06/16 10/06/16 10/06/16 07:00 15:00 23:00 07:00 15:00 23:00 Intake Total 316 ml 1560 ml 1480 ml Output Total 1200 ml Balance 316 ml 360 ml 1480 ml Intake Oral 240 ml 480 ml 480 ml IV Total 76 ml 1080 ml 1000 ml Output Urine Total 1200 ml # Voids 2 4 # Bowel Movements 0 Physical Exam GENERAL: In NAD SKIN: Warm and dry. HEAD: Normocephalic. EYES: No scleral icterus. No injection or drainage. NECK: Supple, trachea midline. No JVD or lymphadenopathy. CARDIOVASCULAR: Regular rate and rhythm without murmurs, gallops, or rubs. RESPIRATORY: Breath sounds equal bilaterally. No accessory muscle use. GASTROINTESTINAL: Abdomen soft, non-tender, nondistended. MUSCULOSKELETAL: No cyanosis, or edema. Groin stable Laboratory Laboratory Tests Test 10/05/16 10/06/16 10/06/16 21:35 06:23 06:28 White Blood Count 10.3 TH/MM3 8.2 TH/MM3 Red Blood Count 4.08 MIL/MM3 3.67 MIL/MM3 Hemoglobin 13.3 GM/DL 11.7 GM/DL Hematocrit 38.2 % 34.7 % Mean Corpuscular Volume 93.8 FL 94.6 FL Mean Corpuscular Hemoglobin 32.7 PG 31.8 PG Mean Corpuscular Hemoglobin 34.8 % 33.7 % Concent Red Cell Distribution Width 14.4 % 14.1 % Platelet Count 265 TH/MM3 230 TH/MM3 Mean Platelet Volume 8.7 FL 8.8 FL Neutrophils (%) (Auto) 73.4 % 71.6 % Lymphocytes (%) (Auto) 18.8 % 18.3 % Monocytes (%) (Auto) 6.7 % 8.8 % Eosinophils (%) (Auto) 0.3 % 0.7 % Basophils (%) (Auto) 0.8 % 0.6 % Neutrophils # (Auto) 7.6 TH/MM3 5.8 TH/MM3 Lymphocytes # (Auto) 1.9 TH/MM3 1.5 TH/MM3 Monocytes # (Auto) 0.7 TH/MM3 0.7 TH/MM3 Eosinophils # (Auto) 0.0 TH/MM3 0.1 TH/MM3 Basophils # (Auto) 0.1 TH/MM3 0.0 TH/MM3 CBC Comment DIFF FINAL DIFF FINAL Differential Comment Sodium Level 140 MEQ/L Potassium Level 3.3 MEQ/L Chloride Level 106 MEQ/L Carbon Dioxide Level 24.5 MEQ/L Anion Gap 10 MEQ/L Blood Urea Nitrogen 6 MG/DL Creatinine 0.71 MG/DL Estimat Glomerular Filtration 81 ML/MIN Rate Random Glucose 112 MG/DL Calcium Level 8.4 MG/DL Total Bilirubin 1.2 MG/DL Aspartate Amino Transf 31 U/L (AST/SGOT) Alanine Aminotransferase 26 U/L (ALT/SGPT) Alkaline Phosphatase 51 U/L Total Creatine Kinase 293 U/L Creatine Kinase MB 10.5 NG/ML Creatine Kinase MB % 3.6 % Total Protein 5.9 GM/DL Albumin 3.4 GM/DL Triglycerides Level 109 MG/DL Cholesterol Level 198 MG/DL LDL Cholesterol 117 MG/DL HDL Cholesterol 58.9 MG/DL Cholesterol/HDL Ratio 3.36 RATIO Imaging Last Impressions Head CT 10/05/16 0000 Signed Impressions: Service Date/Time: Thursday, October 06, 2016 14:36 - CONCLUSION: Negative CT scan of the head. Hugh Parrish MD FACR Chest X-Ray 10/04/16 0923 Signed Impressions: Service Date/Time: Tuesday, October 04, 2016 09:37 - CONCLUSION: No acute disease. 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 LAD PCI planned for Tue. Monitor renal fx. Increase activity. Continue aggressive risk factor modification and post [place] care. Marika Church MD Oct 06, 2016 17:57
--- NOTE | 2016-10-06 20:14 | MB ---
cc: GATITO SANCHEZ MD DATE OF CONSULTATION: 10/05/2016 REASON FOR CONSULTATION: HISTORY OF PRESENT ILLNESS: The patient is a 71 year-old white female with a history of COPD, presented to [facility] with substernal chest discomfort. She was ruled in for non ST elevation myocardial infarction and was transferred to [facility] for further evaluation. She complains of shortness of breath. She has had recent episodes of chest discomfort. PAST MEDICAL HISTORY: Positive for: 1. Arthritis. 2. COPD. 3. Gastroesophageal reflux disease 4. Asthma. MEDICATIONS AT HOME: 1. Symbicort. 2. Omeprazole. 3. Trazodone 4. Tramadol 5. Celebrex. ALLERGIES: DOXYCYCLINE CYMBALTA OXYCONTIN CODEINE SOCIAL HISTORY: The patient does not smoke. She does not drink alcohol. She is retired. She is accompanied by her family including her . FAMILY HISTORY: Negative for heart disease. REVIEW OF SYSTEMS: Otherwise negative. PHYSICAL EXAMINATION: VITAL SIGNS: Blood pressure 120/67, pulse 77 and regular. HEENT: Negative, 2+ carotid upstrokes. No bruits. LUNGS: Clear. HEART: Regular with no murmur, gallop or rub. ABDOMEN: Soft. No bruits. EXTREMITIES: Without edema. 2+ distal pulses. NEUROLOGIC: Grossly intact. EKG: The EKG is reviewed, and showed normal sinus rhythm, normal axis, diffuse ST-T changes. LABORATORY DATA: Hemoglobin 12.9, potassium 3.4, creatinine 0.66, troponin 0.11, 0.58, 0.85. DIAGNOSIS: 1. Non ST elevation myocardial infarction. 2. Dyslipidemia. 3. COPD/asthma. DISPOSITION: Mrs. Rivera has been ruled in for myocardial infarction by enzymes. She will be scheduled for cardiac catheterization and coronary intervention if necessary today. We will continue anticoagulation with heparin. I will follow her for cardiology during her hospitalization. I will also see her back for followup in our office after discharge. MD ESTELLE Cheng/CLARENCE /5:53 PM /7:48 PM [facility] CENTERAgnes
[2016-10-06] MEDS: traZODone HCL 50 MG TAB PO SCH (21:13)
[2016-10-06] MEDS: ATORVASTATIN 80 MG TAB PO SCH (21:14)
[2016-10-07] VITALS (23 sets, daily range): BP systolic 113–144; BP diastolic 54–79; PULSE 58–98; RESP 16–18; TEMP 97.4–98.7; O2SAT 97–100
[2016-10-07] MEDS: ISOSORBIDE MONONITRATE 30 MG TAB PO SCH (05:53)
[2016-10-07 06:42] LABS: AUTOMATED NEUTROPHIL # 5.4 TH/MM3 (1.8-7.7); BASOPHIL % 0.6 % (0.0-2.0); EOSINOPHIL # 0.1 TH/MM3 (0-0.4); EOSINOPHIL % 1.2 % (0.0-4.0); HEMATOCRIT 34.7 % (35.0-46.0); HEMO FLAGS DIFF FINAL; LYMPH % 18.9 % (9.0-44.0); LYMPHOCYTE # 1.5 TH/MM3 (1.0-4.8); MEAN CELL VOLUME 93.8 FL (80.0-100.0); MEAN CORPUSCULAR HEMOGLOBIN 32.8 PG (27.0-34.0); MONO % 9.3 % (0.0-8.0); PLATELET COUNT 223 TH/MM3 (150-450); RED CELL DISTRIBUTION WIDTH 14.3 % (11.6-17.2); WHITE BLOOD COUNT 7.7 TH/MM3 (4.0-11.0)
[2016-10-07 06:54] LABS: ALKALINE PHOSPHATASE 54 U/L (45-117); ALT (GPT) 29 U/L (10-53); ANION GAP 9 MEQ/L (5-15); AST (GOT) 40 U/L (15-37); BICARBONATE 24.6 MEQ/L (21.0-32.0); BLOOD UREA NITROGEN 7 MG/DL (7-18); CHLORIDE 106 MEQ/L (98-107); GLOMERULAR FILTRATION RATE 74 ML/MIN (>89); POTASSIUM 3.4 MEQ/L (3.5-5.1); SODIUM (NA) 140 MEQ/L (136-145); TOTAL BILIRUBIN ADULT 1.1 MG/DL (0.2-1.0)
--- NOTE | 2016-10-07 08:07 | HHI.PR ---
Subjective History of Present Illness Patient S/P cardiac catherization Non-ST elevation myocardial infarction. Severe multivessel coronary artery disease. Preserved left ventricular systolic function. Successful angioplasty and stenting of the proximal and mid-right coronary artery. Anxiety on Ativan. going for left heart catherization tomorrow. Review of Systems Constitutional Constitutional: Fatigue, Weakness Vitals/Results Intake & Output 10/06/16 10/06/16 10/07/16 15:00 23:00 07:00 Intake Total 840 ml 240 ml Balance 840 ml 240 ml Intake Oral 840 ml 240 ml # Voids 4 2 # Bowel Movements 1 Vital Signs Vital Signs Date Time Temp Pulse Resp B/P Pulse Ox O2 Delivery O2 Flow Rate FiO2 10/07/16 07:35 98.0 86 18 131/73 100 10/07/16 07:35 82 10/07/16 06:00 70 10/07/16 05:00 76 10/07/16 04:00 97 10/07/16 03:00 67 10/07/16 03:00 98.1 58 18 113/54 99 10/07/16 02:00 70 10/07/16 01:00 68 10/07/16 00:00 86 10/06/16 23:00 98.0 82 18 104/49 99 10/06/16 23:00 85 10/06/16 22:00 78 10/06/16 21:00 82 10/06/16 20:00 90 10/06/16 19:00 84 10/06/16 19:00 98.0 83 18 129/65 96 10/06/16 18:40 68 10/06/16 16:31 18 10/06/16 16:00 98.1 81 18 118/48 100 10/06/16 16:00 81 10/06/16 12:20 98.5 82 16 120/67 100 10/06/16 12:00 78 10/06/16 11:00 92 10/06/16 10:00 82 10/06/16 09:13 20 10/06/16 09:00 80 10/06/16 08:15 98.2 90 18 125/68 100 CBC/BMP: 10/07/16 0558 10/07/16 0558 Lab Results Laboratory Tests Test 10/07/16 05:58 White Blood Count 7.7 TH/MM3 Red Blood Count 3.70 MIL/MM3 Hemoglobin 12.1 GM/DL Hematocrit 34.7 % Mean Corpuscular Volume 93.8 FL Mean Corpuscular Hemoglobin 32.8 PG Mean Corpuscular Hemoglobin 35.0 % Concent Red Cell Distribution Width 14.3 % Platelet Count 223 TH/MM3 Mean Platelet Volume 8.9 FL Neutrophils (%) (Auto) 70.0 % Lymphocytes (%) (Auto) 18.9 % Monocytes (%) (Auto) 9.3 % Eosinophils (%) (Auto) 1.2 % Basophils (%) (Auto) 0.6 % Neutrophils # (Auto) 5.4 TH/MM3 Lymphocytes # (Auto) 1.5 TH/MM3 Monocytes # (Auto) 0.7 TH/MM3 Eosinophils # (Auto) 0.1 TH/MM3 Basophils # (Auto) 0.0 TH/MM3 CBC Comment DIFF FINAL Differential Comment Sodium Level 140 MEQ/L Potassium Level 3.4 MEQ/L Chloride Level 106 MEQ/L Carbon Dioxide Level 24.6 MEQ/L Anion Gap 9 MEQ/L Blood Urea Nitrogen 7 MG/DL Creatinine 0.77 MG/DL Estimat Glomerular Filtration 74 ML/MIN Rate Random Glucose 121 MG/DL Calcium Level 8.8 MG/DL Total Bilirubin 1.1 MG/DL Aspartate Amino Transf 40 U/L (AST/SGOT) Alanine Aminotransferase 29 U/L (ALT/SGPT) Alkaline Phosphatase 54 U/L Total Protein 6.6 GM/DL Albumin 3.7 GM/DL Physical Exam General General Appearance: Well Developed, Well Nourished, No Acute Distress, Comfortable Eyes Eye Exam: Pupils Equal, Pupils Reactive, Sclera White, Extraocular Movement Intact Throat Throat Exam: Oral Mucosa [place] & Moist, Oral Pharynx Normal Neck Neck Exam: Neck Supple, Trachea Midline Pulmonary Resp Exam: Clear Bilaterally, Breath Sounds Equal, No Distress Cardiology CV Exam: Regular, Normal Sinus Rhythm Gastrointestinal/Abdomen GI Exam: Soft, Non-Tender, Bowel Sounds Present Musculoskeletal MS Exam: Normal Tone Integumentary Skin Exam: Clear, Warm, Dry, Intact, Normal Turgor Extremeties Extremities Exam: No Edema Neurologic Neuro Exam: Alert, Awake, Oriented, Speech Clear, Moving All Extremities, No Focal Deficits Psychiatric Psych Exam: Appropriate Responses VTE Prophylaxis VTE Prophylaxis Meds: Heparin PUD Prophylasis PUD Prophylaxis: Protonix Assessment/Plan Assessment/Plan ASSESSMENT/PLAN This is a 71-year female who came to the ER diagnosed with: 1. Chest pain, rule out acute coronary syndrome. The patient has most likely [id number] myocardial infarction. The patient had a high troponin. The patient is on heparin GTT. the patient on aspirin 81 mg p.o. daily. The patient S/P cardiac catherization Non-ST elevation myocardial infarction. Severe multivessel coronary artery disease. Preserved left ventricular systolic function. Successful angioplasty and stenting of the proximal and mid-right coronary artery. going for left heart catherization tomorrow. d/w Cardiology Dr Church. 2. History of hyperlipidemia. Continue with Lipitor 40 mg p.o. daily. 3. History of insomnia. Continue Trazodone 50 mg p.o., h.s. 4. History of gastroesophageal reflux disease. Protonix 40 mg p.o. b.i.d. 5. History of COPD. Continue with Symbicort one puff inhalation [id number]. 6. History of arthritis. Continue with Celebrex 200 mg h.s. 7. DVT prophylaxis heparin GTT 8. GI prophylaxis Protonix 40 mg p.o. daily. 9. Anxiety on Ativan. Check CBC with diff CMP in AM. We are going to manage the patient on a daily basis and make Recommendations on a daily basis. Discussed Condition with: Patient Cachorro Randolph MD Oct 07, 2016 08:07
[2016-10-07] MEDS: PANTOPRAZOLE SOD 40 MG DELAYED RELEASE TAB PO SCH ×2 (09:40→20:40)
[2016-10-07] MEDS: CARVEDILOL 6.25 MG TAB PO SCH ×2 (09:40→20:41)
[2016-10-07] MEDS: TICAGRELOR 90 MG TAB PO SCH ×2 (09:40→20:40)
[2016-10-07] MEDS: ASPIRIN 81 MG CHEW TAB PO SCH (09:40)
[2016-10-07] MEDS: LORazepam 0.5 MG TAB PO PRN ×2 (09:40→20:41)
[2016-10-07] MEDS: BUDESONIDE-FORMOTEROL 80/4.5 MCG INHALER INH SCH ×2 (09:41→20:39)
[2016-10-07] MEDS: SODIUM CHLORIDE 0.9% FLUSH 5 ML FLUSH FLUSH SCH ×2 (09:41→20:42)
[2016-10-07] MEDS: oxyCODONE/ACETAMINOPHEN 5 MG/325 MG TAB PO PRN ×2 (14:01→20:40)
--- NOTE | 2016-10-07 15:03 | PD.CARD.PN ---
Subjective Subjective Remarks No CP or SOB, ambulating Objective Medications Current Medications Medications (Trade) Dose Ordered Sig/Alejandro Route Start Time Stop Time Status Last Admin (NS Flush) 2 ml UNSCH PRN FLUSH 10/04/16 10:45 (NS Flush) 2 ml BID FLUSH 10/04/16 21:00 10/07/16 09:41 (Tylenol) 650 mg Q4H PRN PO 10/04/16 10:45 10/04/16 12:29 (Zofran Inj) 4 mg Q6H PRN IVP 10/04/16 10:45 10/06/16 08:23 (Narcan Inj) 0.4 mg UNSCH PRN IV 10/04/16 10:45 (Symbicort 80-4.5 Mcg Inh) 1 puff Q12HR INH 10/04/16 13:00 10/07/16 09:41 (Protonix) 40 mg BID PO 10/04/16 12:45 10/07/16 09:40 (Desyrel) 50 mg HS PO 10/04/16 21:00 10/06/16 21:13 (Vasotec Inj) 1.25 mg Q6H PRN IV PUSH 10/04/16 12:45 Morphine Sulfate 2 mg 2 mg Q4H PRN IV PUSH 10/04/16 12:45 10/05/16 15:59 (Heparin-D5W Inj) 250 ml @ 0 mls/hr TITRATE IV 10/04/16 17:00 10/04/16 17:06 (Heparin Inj) 5,000 units UNSCH PRN IV 10/04/16 17:00 (Heparin Inj) 2,500 units UNSCH PRN IV 10/04/16 17:00 (Tessalon) 100 mg TID PRN PO 10/05/16 04:15 10/05/16 10:52 (Aspirin Chew) 81 mg DAILY PO 10/06/16 09:00 10/07/16 09:40 (Coreg) 6.25 mg BID PO 10/05/16 21:00 10/07/16 09:40 (Lipitor) 80 mg HS PO 10/05/16 21:00 10/06/16 21:14 (Brilinta) 90 mg BID PO 10/06/16 06:00 10/07/16 09:40 (Imdur) 30 mg DAILY@07 PO 10/06/16 07:00 10/07/16 05:53 (Percocet 5-325 Mg) 1 tab Q6H PRN PO 10/05/16 20:00 10/07/16 14:01 (Ativan) 0.5 mg TID PRN PO 10/06/16 13:45 10/07/16 09:40 Vital Signs / I&O Vital Signs Date Time Temp Pulse Resp B/P Pulse Ox O2 Delivery O2 Flow Rate FiO2 10/07/16 14:05 78 10/07/16 13:36 70 10/07/16 12:00 78 10/07/16 11:45 98 10/07/16 11:45 97.4 77 18 127/72 98 10/07/16 10:20 84 10/07/16 09:00 76 10/07/16 08:27 86 10/07/16 07:35 98.0 86 18 131/73 100 10/07/16 07:35 82 10/07/16 06:00 70 10/07/16 05:00 76 10/07/16 04:00 97 10/07/16 03:00 67 10/07/16 03:00 98.1 58 18 113/54 99 10/07/16 02:00 70 10/07/16 01:00 68 10/07/16 00:00 86 10/06/16 23:00 98.0 82 18 104/49 99 10/06/16 23:00 85 10/06/16 22:00 78 10/06/16 21:00 82 10/06/16 20:00 90 10/06/16 19:00 84 10/06/16 19:00 98.0 83 18 129/65 96 10/06/16 18:40 68 10/06/16 16:31 18 10/06/16 16:00 98.1 81 18 118/48 100 10/06/16 16:00 81 I/O 10/06/16 10/06/16 10/06/16 10/07/16 10/07/16 10/07/16 07:00 15:00 23:00 07:00 15:00 23:00 Intake Total 1480 ml 840 ml 240 ml Balance 1480 ml 840 ml 240 ml Intake Oral 480 ml 840 ml 240 ml IV Total 1000 ml # Voids 4 4 2 # Bowel Movements 1 Physical Exam GENERAL: In NAD SKIN: Warm and dry. HEAD: Normocephalic. EYES: No scleral icterus. No injection or drainage. NECK: Supple, trachea midline. No JVD or lymphadenopathy. CARDIOVASCULAR: Regular rate and rhythm without murmurs, gallops, or rubs. RESPIRATORY: Breath sounds equal bilaterally. No accessory muscle use. GASTROINTESTINAL: Abdomen soft, non-tender, nondistended. MUSCULOSKELETAL: No cyanosis, or edema. Groin stable Laboratory Laboratory Tests Test 10/07/16 05:58 White Blood Count 7.7 TH/MM3 Red Blood Count 3.70 MIL/MM3 Hemoglobin 12.1 GM/DL Hematocrit 34.7 % Mean Corpuscular Volume 93.8 FL Mean Corpuscular Hemoglobin 32.8 PG Mean Corpuscular Hemoglobin 35.0 % Concent Red Cell Distribution Width 14.3 % Platelet Count 223 TH/MM3 Mean Platelet Volume 8.9 FL Neutrophils (%) (Auto) 70.0 % Lymphocytes (%) (Auto) 18.9 % Monocytes (%) (Auto) 9.3 % Eosinophils (%) (Auto) 1.2 % Basophils (%) (Auto) 0.6 % Neutrophils # (Auto) 5.4 TH/MM3 Lymphocytes # (Auto) 1.5 TH/MM3 Monocytes # (Auto) 0.7 TH/MM3 Eosinophils # (Auto) 0.1 TH/MM3 Basophils # (Auto) 0.0 TH/MM3 CBC Comment DIFF FINAL Differential Comment Sodium Level 140 MEQ/L Potassium Level 3.4 MEQ/L Chloride Level 106 MEQ/L Carbon Dioxide Level 24.6 MEQ/L Anion Gap 9 MEQ/L Blood Urea Nitrogen 7 MG/DL Creatinine 0.77 MG/DL Estimat Glomerular Filtration 74 ML/MIN Rate Random Glucose 121 MG/DL Calcium Level 8.8 MG/DL Total Bilirubin 1.1 MG/DL Aspartate Amino Transf 40 U/L (AST/SGOT) Alanine Aminotransferase 29 U/L (ALT/SGPT) Alkaline Phosphatase 54 U/L Total Protein 6.6 GM/DL Albumin 3.7 GM/DL Imaging Last Impressions Head CT 10/05/16 0000 Signed Impressions: Service Date/Time: Thursday, October 06, 2016 14:36 - CONCLUSION: Negative CT scan of the head. Hugh Parrish MD FACR Chest X-Ray 10/04/16 0923 Signed Impressions: Service Date/Time: Tuesday, October 04, 2016 09:37 - CONCLUSION: No acute disease. 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 LAD PCI tomorrow. Monitor renal fx. Increase activity. Continue aggressive risk factor modification and post [place] care. Marika Church MD Oct 07, 2016 15:03
[2016-10-07] MEDS: BENZONATATE 100 MG CAP PO PRN (20:40)
[2016-10-07] MEDS: traZODone HCL 50 MG TAB PO SCH (20:41)
[2016-10-07] MEDS: ATORVASTATIN 80 MG TAB PO SCH (20:41)
[2016-10-08] VITALS (25 sets, daily range): BP systolic 112–146; BP diastolic 51–82; PULSE 64–85; RESP 16–18; TEMP 97.6–98.4; O2SAT 97–100
[2016-10-08] MEDS: LORazepam 0.5 MG TAB PO PRN ×2 (05:26→20:29)
[2016-10-08] MEDS: ISOSORBIDE MONONITRATE 30 MG TAB PO SCH (05:26)
[2016-10-08] MEDS: BENZONATATE 100 MG CAP PO PRN (05:26)
[2016-10-08 06:38] LABS: BASOPHIL # 0.1 TH/MM3 (0-0.2); BASOPHIL % 0.7 % (0.0-2.0); EOSINOPHIL # 0.1 TH/MM3 (0-0.4); EOSINOPHIL % 1.7 % (0.0-4.0); HEMATOCRIT 33.6 % (35.0-46.0); HEMO FLAGS DIFF FINAL; LYMPH % 10.7 % (9.0-44.0); LYMPHOCYTE # 0.8 TH/MM3 (1.0-4.8); MEAN CELL VOLUME 93.2 FL (80.0-100.0); MEAN CORPUSCULAR HEMOGLOBIN 32.5 PG (27.0-34.0); MEAN CORPUSCULAR HGB CONC 34.8 % (32.0-36.0); MONO % 10.5 % (0.0-8.0); NEUT % 76.4 % (16.0-70.0); PLATELET COUNT 213 TH/MM3 (150-450); RED BLOOD COUNT 3.61 MIL/MM3 (4.00-5.30); RED CELL DISTRIBUTION WIDTH 14.3 % (11.6-17.2); WHITE BLOOD COUNT 7.8 TH/MM3 (4.0-11.0)
[2016-10-08 07:10] LABS: ALKALINE PHOSPHATASE 52 U/L (45-117); ALT (GPT) 39 U/L (10-53); ANION GAP 8 MEQ/L (5-15); AST (GOT) 48 U/L (15-37); BICARBONATE 26.6 MEQ/L (21.0-32.0); BLOOD UREA NITROGEN 5 MG/DL (7-18); CHLORIDE 105 MEQ/L (98-107); GLOMERULAR FILTRATION RATE 85 ML/MIN (>89); POTASSIUM 3.4 MEQ/L (3.5-5.1); SODIUM (NA) 140 MEQ/L (136-145); TOTAL BILIRUBIN ADULT 0.8 MG/DL (0.2-1.0)
--- NOTE | 2016-10-08 08:00 | HHI.PR ---
Subjective History of Present Illness Patient S/P cardiac catherization Non-ST elevation myocardial infarction. Severe multivessel coronary artery disease. Preserved left ventricular systolic function. Successful angioplasty and stenting of the proximal and mid-right coronary artery. Anxiety on Ativan. going for left heart catherization tomorrow. Review of Systems Constitutional Constitutional: Fatigue, Weakness Vitals/Results Intake & Output 10/07/16 10/07/16 10/08/16 15:00 23:00 07:00 Intake Total 720 ml 240 ml Output Total 600 ml Balance 720 ml -360 ml Intake Oral 720 ml 240 ml Output Urine Total 600 ml # Voids 5 Vital Signs Vital Signs Date Time Temp Pulse Resp B/P Pulse Ox O2 Delivery O2 Flow Rate FiO2 10/08/16 06:00 75 10/08/16 05:00 72 10/08/16 04:00 77 10/08/16 04:00 98.4 77 16 146/82 98 10/08/16 03:00 84 10/08/16 02:00 64 10/08/16 01:00 68 10/08/16 00:00 98.3 70 16 130/51 97 10/08/16 00:00 85 10/07/16 23:00 66 10/07/16 22:00 82 10/07/16 21:00 88 10/07/16 20:00 98.7 86 16 144/74 97 10/07/16 20:00 92 10/07/16 18:08 70 10/07/16 17:05 80 10/07/16 16:42 76 10/07/16 15:46 77 10/07/16 15:46 98.1 78 18 136/79 98 10/07/16 15:28 18 10/07/16 14:05 78 10/07/16 13:36 70 10/07/16 12:00 78 10/07/16 11:45 98 10/07/16 11:45 97.4 77 18 127/72 98 10/07/16 10:20 84 10/07/16 09:00 76 10/07/16 08:27 86 CBC/BMP: 10/08/16 0605 10/08/16 0605 Lab Results Laboratory Tests Test 10/08/16 06:05 White Blood Count 7.8 TH/MM3 Red Blood Count 3.61 MIL/MM3 Hemoglobin 11.7 GM/DL Hematocrit 33.6 % Mean Corpuscular Volume 93.2 FL Mean Corpuscular Hemoglobin 32.5 PG Mean Corpuscular Hemoglobin 34.8 % Concent Red Cell Distribution Width 14.3 % Platelet Count 213 TH/MM3 Mean Platelet Volume 9.1 FL Neutrophils (%) (Auto) 76.4 % Lymphocytes (%) (Auto) 10.7 % Monocytes (%) (Auto) 10.5 % Eosinophils (%) (Auto) 1.7 % Basophils (%) (Auto) 0.7 % Neutrophils # (Auto) 6.0 TH/MM3 Lymphocytes # (Auto) 0.8 TH/MM3 Monocytes # (Auto) 0.8 TH/MM3 Eosinophils # (Auto) 0.1 TH/MM3 Basophils # (Auto) 0.1 TH/MM3 CBC Comment DIFF FINAL Differential Comment Sodium Level 140 MEQ/L Potassium Level 3.4 MEQ/L Chloride Level 105 MEQ/L Carbon Dioxide Level 26.6 MEQ/L Anion Gap 8 MEQ/L Blood Urea Nitrogen 5 MG/DL Creatinine 0.68 MG/DL Estimat Glomerular Filtration 85 ML/MIN Rate Random Glucose 119 MG/DL Calcium Level 8.6 MG/DL Total Bilirubin 0.8 MG/DL Aspartate Amino Transf 48 U/L (AST/SGOT) Alanine Aminotransferase 39 U/L (ALT/SGPT) Alkaline Phosphatase 52 U/L Total Protein 6.6 GM/DL Albumin 3.8 GM/DL Physical Exam General General Appearance: Well Developed, Well Nourished, No Acute Distress, Comfortable Eyes Eye Exam: Pupils Equal, Pupils Reactive, Sclera White, Extraocular Movement Intact Throat Throat Exam: Oral Mucosa [place] & Moist, Oral Pharynx Normal Neck Neck Exam: Neck Supple, Trachea Midline Pulmonary Resp Exam: Clear Bilaterally, Breath Sounds Equal, No Distress Cardiology CV Exam: Regular, Normal Sinus Rhythm Gastrointestinal/Abdomen GI Exam: Soft, Non-Tender, Bowel Sounds Present Musculoskeletal MS Exam: Normal Tone Integumentary Skin Exam: Clear, Warm, Dry, Intact, Normal Turgor Extremeties Extremities Exam: No Edema Neurologic Neuro Exam: Alert, Awake, Oriented, Speech Clear, Moving All Extremities, No Focal Deficits Psychiatric Psych Exam: Appropriate Responses VTE Prophylaxis VTE Prophylaxis Meds: Heparin PUD Prophylasis PUD Prophylaxis: Protonix Assessment/Plan Assessment/Plan ASSESSMENT/PLAN This is a 71-year female who came to the ER diagnosed with: 1. Chest pain, rule out acute coronary syndrome. The patient has most likely [id number] myocardial infarction. The patient had a high troponin. The patient is on heparin GTT. the patient on aspirin 81 mg p.o. daily. The patient S/P cardiac catherization Non-ST elevation myocardial infarction. Severe multivessel coronary artery disease. Preserved left ventricular systolic function. Successful angioplasty and stenting of the proximal and mid-right coronary artery. going for left heart catherization tomorrow. d/w Cardiology Dr Church. 2. History of hyperlipidemia. Continue with Lipitor 40 mg p.o. daily. 3. History of insomnia. Continue Trazodone 50 mg p.o., h.s. 4. History of gastroesophageal reflux disease. Protonix 40 mg p.o. b.i.d. 5. History of COPD. Continue with Symbicort one puff inhalation [id number]. 6. History of arthritis. Continue with Celebrex 200 mg h.s. 7. DVT prophylaxis heparin GTT 8. GI prophylaxis Protonix 40 mg p.o. daily. 9. Anxiety on Ativan. Check CBC with diff CMP in AM. We are going to manage the patient on a daily basis and make Recommendations on a daily basis. Cachorro Randolph MD Oct 08, 2016 08:00
[2016-10-08] MEDS: BUDESONIDE-FORMOTEROL 80/4.5 MCG INHALER INH SCH ×2 (08:02→21:49)
[2016-10-08] MEDS: PANTOPRAZOLE SOD 40 MG DELAYED RELEASE TAB PO SCH ×2 (08:02→21:51)
[2016-10-08] MEDS: CARVEDILOL 6.25 MG TAB PO SCH ×2 (08:03→21:51)
[2016-10-08] MEDS: TICAGRELOR 90 MG TAB PO SCH ×2 (08:03→21:51)
[2016-10-08] MEDS: ASPIRIN 81 MG CHEW TAB PO SCH (08:04)
[2016-10-08] MEDS: SODIUM CHLORIDE 0.9% FLUSH 5 ML FLUSH FLUSH SCH ×2 (08:17→21:49)
[2016-10-08] MEDS ORDERED: HEPARIN-NS/PF INJ 500 ML ONE (08:43)
[2016-10-08] MEDS ORDERED: HEPARIN SODIUM - IV 10,000 UNITS/10 ML VIAL ONE (08:44)
[2016-10-08] MEDS ORDERED: MIDAZOLAM HCL 2 MG/2 ML VIAL ONE ×2 (08:44→09:28)
[2016-10-08] MEDS ORDERED: MIDAZOLAM HCL 5 MG/5 ML VIAL ONE (09:53)
[2016-10-08] MEDS ORDERED: IOHEXOL 350 MG/ML 100 ML BTL (for Cath Lab) OTHER ONE (10:20)
[2016-10-08] MEDS ORDERED: SODIUM CHLOR 0.9% 1000 ML INJ 1,000 ML IV SCH (11:00)
[2016-10-08] MEDS: oxyCODONE/ACETAMINOPHEN 5 MG/325 MG TAB PO PRN ×3 (11:00→21:53)
[2016-10-08] MEDS: ONDANSETRON HCL 4 MG/2 ML VIAL IVP PRN (20:18)
[2016-10-08] MEDS: traZODone HCL 50 MG TAB PO SCH (21:50)
[2016-10-08] MEDS: ATORVASTATIN 80 MG TAB PO SCH (21:51)
[2016-10-09] VITALS (22 sets, daily range): BP systolic 105–144; BP diastolic 60–65; PULSE 60–87; RESP 16–18; TEMP 97.6–97.7; O2SAT 99–100
[2016-10-09] MEDS: oxyCODONE/ACETAMINOPHEN 5 MG/325 MG TAB PO PRN ×2 (03:14→11:08)
[2016-10-09] MEDS: ISOSORBIDE MONONITRATE 30 MG TAB PO SCH (06:17)
[2016-10-09 06:38] LABS: AUTOMATED NEUTROPHIL # 4.3 TH/MM3 (1.8-7.7); BASOPHIL % 0.7 % (0.0-2.0); EOSINOPHIL # 0.1 TH/MM3 (0-0.4); EOSINOPHIL % 2.3 % (0.0-4.0); HEMATOCRIT 28.6 % (35.0-46.0); HEMO FLAGS DIFF FINAL; LYMPH % 13.4 % (9.0-44.0); LYMPHOCYTE # 0.8 TH/MM3 (1.0-4.8); MEAN CELL VOLUME 95.6 FL (80.0-100.0); MEAN CORPUSCULAR HEMOGLOBIN 32.8 PG (27.0-34.0); MEAN CORPUSCULAR HGB CONC 34.3 % (32.0-36.0); MONO % 12.3 % (0.0-8.0); NEUT % 71.3 % (16.0-70.0); PLATELET COUNT 158 TH/MM3 (150-450); RED CELL DISTRIBUTION WIDTH 14.1 % (11.6-17.2)
[2016-10-09 06:54] LABS: ALKALINE PHOSPHATASE 43 U/L (45-117); ALT (GPT) 37 U/L (10-53); ANION GAP 8 MEQ/L (5-15); AST (GOT) 44 U/L (15-37); BICARBONATE 26.7 MEQ/L (21.0-32.0); BLOOD UREA NITROGEN 5 MG/DL (7-18); CHLORIDE 108 MEQ/L (98-107); GLOMERULAR FILTRATION RATE 109 ML/MIN (>89); POTASSIUM 3.4 MEQ/L (3.5-5.1); SODIUM (NA) 143 MEQ/L (136-145); TOTAL BILIRUBIN ADULT 0.6 MG/DL (0.2-1.0)
[2016-10-09] MEDS: CARVEDILOL 6.25 MG TAB PO SCH (07:40)
[2016-10-09] MEDS: PANTOPRAZOLE SOD 40 MG DELAYED RELEASE TAB PO SCH (07:40)
[2016-10-09] MEDS: ASPIRIN 81 MG CHEW TAB PO SCH (07:41)
[2016-10-09] MEDS: MORPHINE SULFATE 4 MG/ML INJ IV PUSH PRN (07:41)
[2016-10-09] MEDS: TICAGRELOR 90 MG TAB PO SCH (07:41)
--- NOTE | 2016-10-09 08:49 | HHI.PR ---
Subjective History of Present Illness Patient S/P cardiac catherization Non-ST elevation myocardial infarction. Severe multivessel coronary artery disease. Preserved left ventricular systolic function. Successful angioplasty and stenting of the proximal and mid-right coronary artery. Anxiety on Ativan. s/p left heart catherization c/o both thigh pain check venous doppler of lower extremity. Low potassium will replace and monitor. d/w YEHUDA Lutz at bed side. Review of Systems Constitutional Constitutional: Fatigue, Weakness Vitals/Results Intake & Output 10/08/16 10/08/16 10/09/16 15:00 23:00 07:00 Intake Total 500 ml 800 ml Output Total 300 ml 500 ml Balance 200 ml 300 ml Intake Oral 300 ml IV Total 500 ml 500 ml Output Urine Total 300 ml 500 ml # Bowel Movements 0 0 Vital Signs Vital Signs Date Time Temp Pulse Resp B/P Pulse Ox O2 Delivery O2 Flow Rate FiO2 10/09/16 06:00 62 10/09/16 05:00 62 10/09/16 04:00 66 10/09/16 03:24 86 16 144/65 99 10/09/16 03:00 85 10/09/16 02:00 60 10/09/16 01:00 64 10/09/16 00:00 62 10/08/16 23:00 74 16 112/53 99 10/08/16 23:00 67 10/08/16 22:00 80 10/08/16 21:00 72 10/08/16 20:00 72 10/08/16 19:00 78 10/08/16 19:00 98.1 72 16 125/62 99 10/08/16 18:09 75 10/08/16 17:48 77 10/08/16 16:00 72 10/08/16 15:51 67 10/08/16 15:51 17 10/08/16 15:43 98.2 67 17 124/57 100 10/08/16 15:00 68 10/08/16 14:56 67 10/08/16 13:00 70 10/08/16 12:00 72 10/08/16 11:15 97.9 77 18 114/52 100 10/08/16 11:00 75 CBC/BMP: 10/09/16 0547 10/09/16 0547 Lab Results Laboratory Tests Test 10/09/16 05:47 White Blood Count 6.0 TH/MM3 Red Blood Count 3.00 MIL/MM3 Hemoglobin 9.8 GM/DL Hematocrit 28.6 % Mean Corpuscular Volume 95.6 FL Mean Corpuscular Hemoglobin 32.8 PG Mean Corpuscular Hemoglobin 34.3 % Concent Red Cell Distribution Width 14.1 % Platelet Count 158 TH/MM3 Mean Platelet Volume 8.9 FL Neutrophils (%) (Auto) 71.3 % Lymphocytes (%) (Auto) 13.4 % Monocytes (%) (Auto) 12.3 % Eosinophils (%) (Auto) 2.3 % Basophils (%) (Auto) 0.7 % Neutrophils # (Auto) 4.3 TH/MM3 Lymphocytes # (Auto) 0.8 TH/MM3 Monocytes # (Auto) 0.7 TH/MM3 Eosinophils # (Auto) 0.1 TH/MM3 Basophils # (Auto) 0.0 TH/MM3 CBC Comment DIFF FINAL Differential Comment Sodium Level 143 MEQ/L Potassium Level 3.4 MEQ/L Chloride Level 108 MEQ/L Carbon Dioxide Level 26.7 MEQ/L Anion Gap 8 MEQ/L Blood Urea Nitrogen 5 MG/DL Creatinine 0.55 MG/DL Estimat Glomerular Filtration 109 ML/MIN Rate Random Glucose 101 MG/DL Calcium Level 8.3 MG/DL Total Bilirubin 0.6 MG/DL Aspartate Amino Transf 44 U/L (AST/SGOT) Alanine Aminotransferase 37 U/L (ALT/SGPT) Alkaline Phosphatase 43 U/L Total Protein 5.5 GM/DL Albumin 3.1 GM/DL Physical Exam General General Appearance: Well Developed, Well Nourished, No Acute Distress, Comfortable Eyes Eye Exam: Pupils Equal, Pupils Reactive, Sclera White, Extraocular Movement Intact Throat Throat Exam: Oral Mucosa Galva & Moist, Oral Pharynx Normal Neck Neck Exam: Neck Supple, Trachea Midline Pulmonary Resp Exam: Clear Bilaterally, Breath Sounds Equal, No Distress Cardiology CV Exam: Regular, Normal Sinus Rhythm Gastrointestinal/Abdomen GI Exam: Soft, Non-Tender, Bowel Sounds Present Musculoskeletal MS Exam: Normal Tone Integumentary Skin Exam: Clear, Warm, Dry, Intact, Normal Turgor Extremeties Extremities Exam: No Edema Neurologic Neuro Exam: Alert, Awake, Oriented, Speech Clear, Moving All Extremities, No Focal Deficits Psychiatric Psych Exam: Appropriate Responses VTE Prophylaxis VTE Prophylaxis Meds: Heparin PUD Prophylasis PUD Prophylaxis: Protonix Assessment/Plan Assessment/Plan ASSESSMENT/PLAN This is a 71-year female who came to the ER diagnosed with: 1. Chest pain, rule out acute coronary syndrome. The patient has most likely [id number] myocardial infarction. The patient had a high troponin. The patient is on heparin GTT. the patient on aspirin 81 mg p.o. daily. The patient S/P cardiac catherization Non-ST elevation myocardial infarction. Severe multivessel coronary artery disease. Preserved left ventricular systolic function. Successful angioplasty and stenting of the proximal and mid-right coronary artery. s/p left heart catherization. 2. History of hyperlipidemia. Continue with Lipitor 40 mg p.o. daily. 3. History of insomnia. Continue Trazodone 50 mg p.o., h.s. 4. History of gastroesophageal reflux disease. Protonix 40 mg p.o. b.i.d. 5. History of COPD. Continue with Symbicort one puff inhalation [id number]. 6. History of arthritis. Continue with Celebrex 200 mg h.s. 7. DVT prophylaxis heparin GTT 8. GI prophylaxis Protonix 40 mg p.o. daily. 9. Anxiety on Ativan. 10. Both thigh pain check venous doppler of lower extremity. 11. Low potassium will replace and monitor. Check CBC with diff CMP in AM. We are going to manage the patient on a daily basis and make Recommendations on a daily basis. Discussed Condition with: Patient Cachorro Randolph MD Oct 09, 2016 08:49
[2016-10-09] MEDS: BUDESONIDE-FORMOTEROL 80/4.5 MCG INHALER INH SCH (09:00)
[2016-10-09] MEDS: SODIUM CHLORIDE 0.9% FLUSH 5 ML FLUSH FLUSH SCH (09:00)
[2016-10-09] MEDS ORDERED: POTASSIUM CHLORIDE 10 MEQ CONTROLLED RELEASE TAB PO ONE (10:30)
[2016-10-09] MEDS: LORazepam 0.5 MG TAB PO PRN (11:18)
--- NOTE | 2016-10-09 14:13 | RADRPT ---
EXAM DATE/TIME: 10/09/2016 13:16 [facility] COMPARISON: No previous studies available for comparison. INDICATIONS : Bilateral leg pain. MEDICAL HISTORY : Chronic obstructive pulmonary disease. Rheumatoid arthritis. Osteoporosis. Chest pain. Asthma. UTI. GERD. SURGICAL HISTORY : Right knee surgery. Right great toe surgery. ENCOUNTER: Initial ACUITY: 2 day PAIN SCORE: 4/10 LOCATION: Bilateral leg. TECHNIQUE: Venous ultrasound of the left and right leg was performed from the inguinal ligament to the proximal calf. Real-time, color Doppler and spectral tracing, compression and augmentation techniques were us ed. FINDINGS: RIGHT LEG: There is normal compressibility of the deep venous system from the inguinal region to the proximal ca lf. No echogenic clot is seen in the lumen of the common femoral, femoral, popliteal, and posterior tibial veins. There is a normal response of the venous system to proximal and distal augmentation an d respiration. LEFT LEG: There is normal compressibility of the deep venous system from the inguinal region to the proximal ca lf. No echogenic clot is seen in the lumen of the common femoral, femoral, popliteal, and posterior tibial veins. There is a normal response of the venous system to proximal and distal augmentation an d respiration. There is an anechoic avascular fluid collection in the right popliteal fossa measuring 4.8 x 1.8 x 3. 4 cm. CONCLUSION: 1. No DVT is identified within either lower extremity. 2. There is a Shelley's cyst in the right popliteal fossa. Gunnar Oglesby MD on October 09, 2016 at 14:11 Board Certified Radiologist. This report was verified electronically.
[2016-10-09] MEDS ORDERED: ISOS30TA3 PO (16:39)
[2016-10-09] MEDS ORDERED: BENZ100 PO (16:39)
[2016-10-09] MEDS ORDERED: Aspirin Chew PO (16:39)
[2016-10-09] MEDS ORDERED: CARV6.25 PO (16:39)
[2016-10-09] MEDS ORDERED: BRIL90TA PO (16:39)
[2016-10-09] MEDS ORDERED: LIPI40TA PO (16:39)
--- NOTE | 2016-10-09 19:33 | EKG ---
Date Performed: 10/09/2016 Time Performed: 06:23:34 PTAGE: 71 years EKG: Sinus rhythm Possible anterior infarct - age undetermined Inferior/lateral T wave changes are nonspecific Low QRS voltages in precordial leads Since previous tracing, no significant change noted Abnormal ECG PREVIOUS TRACING : 10/08/2016 15.46 DOCTOR: Daniel Pemberton Interpretating Date/Time 10/09/2016 19:33:04
--- NOTE | 2016-10-09 19:33 | EKG ---
Date Performed: 10/08/2016 Time Performed: 15:46:14 PTAGE: 71 years EKG: Sinus rhythm Extensive ST-T changes are nonspecific Low QRS voltages in precordial leads Since previous tracing, no significant change noted Borderline ECG PREVIOUS TRACING : 10/06/2016 07.00 DOCTOR: Daniel Pemberton Interpretating Date/Time 10/09/2016 19:32:54
[2016-10-09] MEDS ORDERED: ATORVASTATIN 40 MG TAB PO SCH (21:00)
--- NOTE | 2016-10-10 05:22 | MR ---
cc: GATITO SANCHEZ MD DATE: 10/08/2016 INDICATIONS Unstable angina, class IV angina, severe multivessel coronary artery disease. PROCEDURE PERFORMED 1. Angioplasty and stenting of the mid left anterior descending artery. 2. Angioplasty of the first diagonal artery. 3. Moderate sedation. ACCESS SITE Left femoral artery EQUIPMENT USED XB LAD 3.5 guide. BMW wire x2 whisper wire. 2.0 noncompliant balloon for pre-dilatation. 2.5 x 18 millimeter Resolute stent at 9 atmospheres. 2.25 x 12 millimeter Resolute stent at 10 atmospheres. 2.0 balloon through the stent struts at 16 atmospheres. 2.5 x 10 millimeter noncompliant balloon at 12 atmospheres for LAD post dilatation. MEDICATIONS Versed IV, Fentanyl IV, Heparin IV, Nitroglycerin IC. IV CONTRAST Omnipaque 180 cc COMPLICATIONS None BLOOD LOSS Less than 10 cc METHOD OF HEMOSTASIS Angio-Seal closure RESULTS Coronary angiography revealed severe 95% stenosis of the mid LAD. Lesion length 12 millimeters, pre ARJUN flow 3, post ARJUN flow 3, post stenosis 0. The diagonal artery had 80% ostial stenosis. Lesion length 7 millimeters, pre ARJUN flow 3, post ARJUN flow 3, post stenosis 30%. POST INTERVENTION ANGIOGRAPHY Excellent patency of the stented segment and no evidence of dissection, thrombosis or distal embolization. DIAGNOSIS 1. Successful angioplasty and stenting of the mid left anterior descending artery. 2. Successful angioplasty of the first diagonal artery. DISPOSITION Ms. Rivera will be monitored on telemetry. We will continue aggressive modification of her cardiac risk factors. We will monitor her renal function. She will be discharged home if stable within the next 24 to 48 hours. I will see her back for followup in our office after discharge. We will continue antiplatelet therapy with Brilinta and aspirin. MD ESTELLE Cheng/CLARENCE /10:33 AM /4:25 AM [email or web address]
--- NOTE | 2016-10-11 15:01 | EKG ---
Date Performed: 10/04/2016 Time Performed: 09:14:20 PTAGE: 71 years EKG: Sinus rhythm Inferior/lateral ST-T changes are nonspecific Low QRS voltages in precordial leads Borderline ECG PREVIOUS TRACING : 12/20/2014 03.59 DOCTOR: Best Valverde Interpretating Date/Time 10/11/2016 15:00:11
--- NOTE | 2016-10-11 15:01 | EKG ---
Date Performed: 10/04/2016 Time Performed: 23:42:24 PTAGE: 71 years EKG: Sinus rhythm Extensive ST-T changes are nonspecific Low QRS voltages in precordial leads Borderline ECG PREVIOUS TRACING : 10/04/2016 09.14 DOCTOR: Best Valverde Interpretating Date/Time 10/11/2016 15:00:21
--- NOTE | 2016-10-14 07:03 | MD ---
cc: CACHORRO JACKSON MD ADMISSION DATE: 10/08/2016 DISCHARGE DATE: 10/09/2016 Okay to discharge the patient home. CONDITION AT THE TIME OF DISCHARGE Satisfactory ACTIVITY As tolerated. DIET Cardiac diet ALLERGIES CODEINE, CYMBALTA, DOXYCYCLINE, OXYCONTIN MEDICATIONS Include: 1. Lipitor 40 mg p.o. daily 2. Tessalon Perles 100 mg p.o. t.i.d. 3. Carvedilol 6.25 mg twice a day 4. Isosorbide mononitrate 30 mg p.o. daily 5. Brilinta 90 mg p.o. b.i.d. 6. Aspirin 81 mg p.o. daily 7. Symbicort inhaler 80/4.5 one puff inhalation q12h 8. Celebrex 200 mg p.o. at bedtime 9. Omeprazole 40 mg p.o. daily 10. Tramadol 100 mg p.o. q8h 11. Trazodone 50 mg at bedtime The patient advised to follow with PCP and cardiology in one week. ADMITTING DIAGNOSIS 1. Chest pain secondary to acute coronary syndrome, patient most likely has a non-ST elevation myocardial infarction. The patient has a high troponin. The patient was given heparin GTT. The patient got a cardiac catheterization. The patient has severe multivessel coronary artery disease, preserved left ventricle systolic function, successful angioplasty and stenting done for the proximal and mid right coronary artery and also left heart catheterization was done. The left heart side also is fixed by Dr. Church. 2. History of hyperlipidemia. 3. History of insomnia. 4. History of gastroesophageal reflux disease. 5. History of COPD. 6. History of arthritis. 7. History of anxiety. 8. Bilateral thigh pain, venous Doppler negative for DVT. 9. Low potassium which was replaced. HOSPITAL COURSE This is a 71-year female admitted with chest pain diagnosed with [id number] myocardial infarction who had a cardiac catheterization done with stent placement. The patient started on Brilinta and all the new medications as dictated above. The patient remained stable. No acute event happened. The patient discharged in a satisfactory condition. Further details in the medical record. Cachorro Jackson MD EA/JOLLY /4:43 PM /6:47 AM
== END 2016-10-09 17:36 | disposition home or self-care (01) | DRG 246 ==
LOC: PHED 09:12 → PHEDA 11:13 → PH3A 11:44 → HCIS 20:09 → OBSVTOIN 10-08 17:32
PROVIDERS: ADMIT Family Medicine; ATTEND Family Medicine
PROC: 4A023N7 Measurement of Cardiac Sampling and Pressure, Left Heart, Percutaneous Approach (ICD-10-PCS; 2016-10-05)
PROC: B2111ZZ Fluoroscopy of Multiple Coronary Arteries using Low Osmolar Contrast (ICD-10-PCS; 2016-10-05)
PROC: B2151ZZ Fluoroscopy of Left Heart using Low Osmolar Contrast (ICD-10-PCS; 2016-10-05)
PROC: 027036Z Dilation of Coronary Artery, One Artery with Three Drug-eluting Intraluminal Devices, Percutaneous Approach (ICD-10-PCS; principal; 2016-10-05 13:30)
PROC: 027035Z Dilation of Coronary Artery, One Artery with Two Drug-eluting Intraluminal Devices, Percutaneous Approach (ICD-10-PCS; 2016-10-08)
PROC: 02703ZZ Dilation of Coronary Artery, One Artery, Percutaneous Approach (ICD-10-PCS; 2016-10-08)
PROC: B2111ZZ Fluoroscopy of Multiple Coronary Arteries using Low Osmolar Contrast (ICD-10-PCS; 2016-10-08)
DX: I21.4 Non-ST elevation (NSTEMI) myocardial infarction (principal); J44.9 Chronic obstructive pulmonary disease, unspecified; I25.110 Atherosclerotic heart disease of native coronary artery with unstable angina pectoris; J45.909 Unspecified asthma, uncomplicated; K21.9 Gastro-esophageal reflux disease without esophagitis; E78.5 Hyperlipidemia, unspecified; F41.9 Anxiety disorder, unspecified; G47.00 Insomnia, unspecified; M79.651 Pain in right thigh; M79.652 Pain in left thigh; M19.90 Unspecified osteoarthritis, unspecified site; Z88.1 Allergy status to other antibiotic agents; Z88.5 Allergy status to narcotic agent; Z88.8 Allergy status to other drugs, medicaments and biological substances
CPT/HCPCS: 70450; 71010; 76937; 80048; 80053; 80061; 82550; 82552; 84484; 85002; 85007; 85025; 85027; 85610; 85730; 92921; 92928; 93005; 93454; 93458; 93970; C1725; C1760; C1769; C1874; C1887; C1893; G0269; G0378; J1644; J2250; J2270; J2405; J3010; J7030; Q9967

== ENCOUNTER → 2016-11-23 | Outpatient (CLI) | payer MEDICARE, BC ==
[~2016-11-23] MED LIST changes: +Aspirin Chew PO; +BENZ100 PO; -BISA10SU8 PR; +BRIL90TA PO; +CARV6.25 PO; -CETI10 PO; -FOLI1 PO; -GABA300C3 PO; +ISOS30TA3 PO; -LEFL20TA7 PO; -LEUC5TAB PO; +LIPI40TA PO; -METH2.5 PO; -OMEP20TA39 PO; +OMEP40CA2 PO; -PHEN12.5 PO; -PRED1 PO; -PROM25TA5 PO; -SYMB160A INH; +SYMB80AE INH; -TRAZ100 PO; +TRAZ50TA12 PO; -VESI5TAB PO; -VITATAB25 PO; -ZITH250T PO
[2016-11-23 17:16] LABS: HEMATOCRIT 34.9 % (35.0-46.0); MEAN CELL VOLUME 95.3 FL (80.0-100.0); MEAN CORPUSCULAR HEMOGLOBIN 32.9 PG (27.0-34.0); MEAN CORPUSCULAR HGB CONC 34.6 % (32.0-36.0); PLATELET COUNT 268 TH/MM3 (150-450); RED BLOOD COUNT 3.67 MIL/MM3 (4.00-5.30); RED CELL DISTRIBUTION WIDTH 14.9 % (11.6-17.2); REVIEW FLAG FINAL; WHITE BLOOD COUNT 6.5 TH/MM3 (4.0-11.0)
[2016-11-23 17:25] LABS: ANION GAP 7 MEQ/L (5-15); AST (GOT) 24 U/L (15-37); BICARBONATE 27.5 MEQ/L (21.0-32.0); BLOOD UREA NITROGEN 10 MG/DL (7-18); CHLORIDE 105 MEQ/L (98-107); GLOMERULAR FILTRATION RATE 82 ML/MIN (>89); SODIUM (NA) 139 MEQ/L (136-145)
[2016-11-23 17:27] LABS: ALKALINE PHOSPHATASE 71 U/L (45-117); ALT (GPT) 30 U/L (10-53); TOTAL BILIRUBIN ADULT 0.7 MG/DL (0.2-1.0)
[2016-11-23 18:05] LABS: WESTERGREN SEDIMENTATION RATE 19 mm/hr (0-30)
== END ==
LOC: PLAB 15:05
PROVIDERS: ATTEND Internal Medicine Rheumatology
DX: M06.89 Other specified rheumatoid arthritis, multiple sites (principal); Z79.899 Other long term (current) drug therapy
CPT/HCPCS: 36415; 80053; 85027; 85652

== ENCOUNTER → 2016-12-14 | Outpatient (CLI) | payer MEDICARE, BC ==
[2016-12-14 11:40] LABS: HDL CHOLESTEROL 52.8 MG/DL (40.0-60.0); INDIRECT BILIRUBIN 0.4 MG/DL (0.0-0.8); TOTAL BILIRUBIN ADULT 0.5 MG/DL (0.2-1.0)
== END ==
LOC: PLAB 09:24
PROVIDERS: ATTEND Internal Medicine Interventional Cardiology
DX: E78.5 Hyperlipidemia, unspecified (principal)
CPT/HCPCS: 36415; 80061; 80076

== ENCOUNTER → 2017-08-16 | Outpatient (CLI) | payer MEDICARE, BC ==
[2017-08-16 17:04] LABS: BICARBONATE 29.9 MEQ/L (21.0-32.0); CREATININE 0.68 MG/DL (0.50-1.00)
== END ==
LOC: PLAB 11:53
PROVIDERS: ATTEND Internal Medicine Interventional Cardiology
DX: I27.0 Primary pulmonary hypertension (principal); Z79.899 Other long term (current) drug therapy
CPT/HCPCS: 36415; 80048

== ENCOUNTER 2017-09-16 15:09 | Inpatient (IN) | payer MEDICARE, BC ==
[~2017-09-16] VITALS: Ht 162.6 cm; Wt 71.0 kg
[2017-09-16 15:10] VITALS: BP 146/68; PULSE 68; RESP 16; TEMP 98.2; O2SAT 100
--- NOTE | 2017-09-16 15:24 | PD ---
HPI Chief Complaint: Fall Time Seen by Provider: 15:19 Travel History International Travel<30 days: No Contact w/Intl Traveler<30days: No Traveled to known affect area: No History of Present Illness HPI Patient is as she states that he snowbird from [place] spends half the time here and half the time in [place]. Patient states that while she was shopping with her daughter Scout she fell and landed on her butt did not really think much of anything except she was not able to get up because of her severe right hip pain. According to her daughter she did not hit her head she did not have any loss of consciousness and she did not have any pain from anywhere else not the back and on her arms not anywhere else but did complain of right hip pain and right knee pain area. Rates it 9 out of 10 and was brought in by EVAC, who gave a total of 10 mg of morphine IV while in route Primary CARE [facility] Allergies: Codeine, doxycycline, oxycodone, and duloxetine Past medical history significant for COPD, ARTHRITIS, ORTHOPEDIC KNEE SURGERY, patient also had 5 stents placed last year when she was here PFSH Past Medical History Arthritis: Yes (R/A) Asthma: Yes Autoimmune Disease: Yes (RA) Cancer: No Cardiovascular Problems: Yes High Cholesterol: No Chest Pain: Yes COPD: Yes Diminished Hearing: No Endocrine: No GERD: Yes Genitourinary: Yes Immune Disorder: Yes Musculoskeletal: Yes Neurologic: No Psychiatric: No Reproductive: No Respiratory: Yes (ASTHMA) Menopausal: Yes Past Surgical History Body Medical Devices: R great toe "plastic implant" Oral Surgery: Yes (teeth extractions ) Social History Alcohol Use: No Tobacco Use: No (QUIT "30 YEARS AGO" STATED 10/04/16) Substance Use: No Allergies-Medications (Allergen,Severity, Reaction): Coded Allergies: doxycycline (Unverified Allergy, Severe, Nausea/Vomiting, 03/23/17) codeine (Unverified Allergy, Intermediate, GI UPSET, 03/23/17) duloxetine (Unverified Allergy, Intermediate, ITCHING, 03/23/17) oxycodone (Unverified Allergy, Unknown, Nausea/Vomiting, 03/23/17) Reported Meds & Prescriptions Reported Meds & Active Scripts Active Brilinta (Ticagrelor) 90 Mg Tab 90 Mg PO BID Isosorbide Mononitrate ER (Isosorbide Mononitrate) 30 Mg Keith 30 Mg PO DAILY@07 Coreg (Carvedilol) 6.25 Mg Tab 6.25 Mg PO BID [Aspirin Chew] 81 MG Chew 81 Mg PO DAILY Reported Tramadol (Tramadol HCl) 50 Mg Tab 100 Mg PO Q8HR PRN Trazodone (Trazodone HCl) 50 Mg Tab 50 Mg PO HS Omeprazole 40 Mg Cap 40 Mg PO BID Review of Systems General / Constitutional: No: Fever Eyes: No: Visual changes HENT: No: Headaches Cardiovascular: No: Chest Pain or Discomfort Respiratory: No: Shortness of Breath Gastrointestinal: No: Abdominal Pain Genitourinary: No: Dysuria Musculoskeletal: Positive: Limited ROM, Pain Skin: No Rash Neurologic: No: Weakness Psychiatric: No: Depression Endocrine: No: Polydipsia Hematologic/Lymphatic: No: Easy Bruising Physical Exam Narrative GENERAL: SKIN: Warm and dry. HEAD: Atraumatic. Normocephalic. EYES: Pupils equal and round. No scleral icterus. No injection or drainage. ENT: No nasal bleeding or discharge. Mucous membranes pink and moist. NECK: Trachea midline. No JVD. CARDIOVASCULAR: Regular rate and rhythm. RESPIRATORY: No accessory muscle use. Clear to auscultation. Breath sounds equal bilaterally. GASTROINTESTINAL: Abdomen soft, non-tender, nondistended. Hepatic and splenic margins not palpable. MUSCULOSKELETAL: Extremities without clubbing, cyanosis, or edema. However does show shortening and external rotation of her right lower extremity. Patient's dorsalis pedis is strong and capillary refill is less than 3 NEUROLOGICAL: Awake and alert. No obvious cranial nerve deficits. Motor grossly within normal limits. Five out of 5 muscle strength in the arms and legs. Normal speech. PSYCHIATRIC: Appropriate mood and affect; insight and judgment normal. Data Data Last Documented VS Vital Signs Date Time Temp Pulse Resp B/P (MAP) Pulse Ox O2 Delivery O2 Flow Rate FiO2 09/16/17 15:33 100 Room Air 09/16/17 15:10 98.2 68 16 146/68 (94) Orders Orders Electrocardiogram (09/16/17 15:25) Complete Blood Count With Diff (09/16/17 15:25) Comprehensive Metabolic Panel (09/16/17 15:25) Prothrombin Time / Inr (Pt) (09/16/17 15:25) Act Partial Throm Time (Ptt) (09/16/17 15:25) Urinalysis - C+S If Indicated (09/16/17 15:25) Chest, Single Ap (09/16/17 15:25) Hip, Uni(Ap&Lat) W Ap Pelvis (09/16/17 15:25) Iv Access Insert/Monitor (09/16/17 15:25) Urinary Catheter Insert/Apply (09/16/17 15:25) Oximetry (09/16/17 15:25) Ecg Monitoring (09/16/17 15:25) Sodium Chloride 0.9% Flush (Ns Flush) (09/16/17 15:30) Labs Laboratory Tests Test 09/16/17 15:45 09/16/17 16:00 Urine Color YELLOW Urine Turbidity CLEAR Urine pH 7.0 Urine Specific [place] 1.011 Urine Protein NEG mg/dL Urine Glucose (UA) NEG mg/dL Urine Ketones NEG mg/dL Urine Occult Blood NEG Urine Nitrite NEG Urine Bilirubin NEG Urine Urobilinogen LESS THAN 2.0 MG/DL Urine Leukocyte Esterase NEG Urine WBC 1 /hpf Urine Hyaline Casts 19 /lpf Urine Mucus FEW /lpf Microscopic Urinalysis Comment CATH-CULT NOT IND White Blood Count 8.0 TH/MM3 Red Blood Count 3.27 MIL/MM3 Hemoglobin 11.1 GM/DL Hematocrit 32.6 % Mean Corpuscular Volume 99.6 FL Mean Corpuscular Hemoglobin 34.0 PG Mean Corpuscular Hemoglobin Concent 34.1 % Red Cell Distribution Width 15.6 % Platelet Count 207 TH/MM3 Mean Platelet Volume 8.4 FL Neutrophils (%) (Auto) 77.9 % Lymphocytes (%) (Auto) 12.0 % Monocytes (%) (Auto) 8.1 % Eosinophils (%) (Auto) 1.1 % Basophils (%) (Auto) 0.9 % Neutrophils # (Auto) 6.3 TH/MM3 Lymphocytes # (Auto) 1.0 TH/MM3 Monocytes # (Auto) 0.7 TH/MM3 Eosinophils # (Auto) 0.1 TH/MM3 Basophils # (Auto) 0.1 TH/MM3 CBC Comment DIFF FINAL Differential Comment Prothrombin Time 10.5 SEC Prothromb Time International Ratio 1.0 RATIO Activated Partial Thromboplast Time 23.8 SEC Blood Urea Nitrogen 9 MG/DL Creatinine 0.62 MG/DL Random Glucose 107 MG/DL Total Protein 6.6 GM/DL Albumin 3.6 GM/DL Calcium Level 8.5 MG/DL Alkaline Phosphatase 47 U/L Aspartate Amino Transf (AST/SGOT) 30 U/L Alanine Aminotransferase (ALT/SGPT) 22 U/L Total Bilirubin 0.5 MG/DL Sodium Level 140 MEQ/L Potassium Level 4.2 MEQ/L Chloride Level 107 MEQ/L Carbon Dioxide Level 27.7 MEQ/L Anion Gap 5 MEQ/L Estimat Glomerular Filtration Rate 94 ML/MIN MDM Medical Decision Making Medical Screen Exam Complete: Yes Emergency Medical Condition: Yes Medical Record Reviewed: Yes Interpretation(s) EKG: Shows normal sinus rhythm, 67 bpm, normal intervals, baseline motion artifact, no STEMI pattern noted. Differential Diagnosis Right hip fracture versus dislocation versus knee fracture/dislocation versus hip contusion Narrative Course X-rays show right trochanteric hip fracture. CBC is without leukocytosis anemia or thrombocytosis ptosis or thrombus cytopenia. CMP has within normal limits on the electrolytes normal kidney normal LFTs negative troponin. Coagulation factors are within normal limits. Chest x-ray does not show any pneumothorax or pneumonia or pleural effusion. Currently awaiting callback Diagnosis Primary Impression: Intertrochanteric fracture of right hip Qualified Codes: S72.141A - Displaced intertrochanteric fracture of right femur, initial encounter for closed fracture Admitting Information Admitting Physician Requests: Admit Pato Ortiz MD Sep 16, 2017 15:24
[2017-09-16 15:33] VITALS: O2SAT 100
[2017-09-16 16:29] LABS: AUTOMATED NEUTROPHIL # 6.3 TH/MM3 (1.8-7.7); BASOPHIL # 0.1 TH/MM3 (0-0.2); BASOPHIL % 0.9 % (0.0-2.0); EOSINOPHIL # 0.1 TH/MM3 (0-0.4); EOSINOPHIL % 1.1 % (0.0-4.0); HEMATOCRIT 32.6 % (35.0-46.0); HEMOGLOBIN 11.1 GM/DL (11.6-15.3); MEAN CELL VOLUME 99.6 FL (80.0-100.0); MEAN CORPUSCULAR HGB CONC 34.1 % (32.0-36.0); MEAN PLATELET VOLUME 8.4 FL (7.0-11.0); MONO % 8.1 % (0.0-8.0); MONOCYTE # 0.7 TH/MM3 (0-0.9); NEUT % 77.9 % (16.0-70.0); PLATELET COUNT 207 TH/MM3 (150-450); RED BLOOD COUNT 3.27 MIL/MM3 (4.00-5.30); RED CELL DISTRIBUTION WIDTH 15.6 % (11.6-17.2)
[2017-09-16 16:31] LABS: BILIRUBIN, URINE NEG (NEG); BLOOD, URINE NEG (NEG); GLUCOSE,URINE NEG (NEG); HYALINE CAST, URINE 19 /lpf (RARE); KETONE, URINE NEG (NEG); MUCUS URINE FEW /lpf (OCC); NITRITE,URINE NEG (NEG); URINE COLOR YELLOW (YELLW/STRAW); URINE LEUKOCYTE ESTERASE NEG (NEG)
[2017-09-16 16:35] LABS: PROTHROMBIN TIME - PATIENT 10.5 SEC (9.8-11.6)
--- NOTE | 2017-09-16 16:42 | RADRPT ---
EXAM DATE/TIME: 09/16/2017 16:21 [facility] COMPARISON: CHEST SINGLE AP, October 04, 2016, 9:37. INDICATIONS : Trauma to chest post fall today MEDICAL HISTORY : None. SURGICAL HISTORY : Cardiac stent ENCOUNTER: Initial ACUITY: 1 day PAIN SCORE: 0/10 LOCATION: Bilateral chest FINDINGS: A single view of the chest demonstrates the lungs to be symmetrically aerated without evidence of mas s, infiltrate or effusion. The cardiomediastinal contours are unremarkable. Osseous structures are intact. CONCLUSION: No acute disease. Hugh Parrish MD FACR on September 16, 2017 at 16:40 Board Certified Radiologist. This report was verified electronically.
--- NOTE | 2017-09-16 16:43 | RADRPT ---
EXAM DATE/TIME: 09/16/2017 16:25 [facility] COMPARISON: No previous studies available for comparison. INDICATIONS : Right hip pain post fall today MEDICAL HISTORY : None. SURGICAL HISTORY : None. ENCOUNTER: Initial ACUITY: 1 day PAIN SCORE: 10/10 LOCATION: Right entire hip FINDINGS: Intertrochanteric fracture right hip with lesser trochanter in free fragment. Mild angulation. Femo ral head aligned with the acetabulum. Pelvis intact. Left hip normal. CONCLUSION: Trochanteric fracture right hip. Hugh Parrihs MD FACR on September 16, 2017 at 16:40 Board Certified Radiologist. This report was verified electronically.
[2017-09-16 16:44] LABS: ALBUMIN 3.6 GM/DL (3.4-5.0); ALT (GPT) 22 U/L (10-53); AST (GOT) 30 U/L (15-37); BICARBONATE 27.7 MEQ/L (21.0-32.0); BLOOD UREA NITROGEN 9 MG/DL (7-18); CALCIUM 8.5 MG/DL (8.5-10.1); CHLORIDE 107 MEQ/L (98-107); CREATININE 0.62 MG/DL (0.50-1.00); GLOMERULAR FILTRATION RATE 94 ML/MIN (>89); GLUCOSE,RANDOM 107 MG/DL (74-106); SODIUM (NA) 140 MEQ/L (136-145)
[2017-09-16 16:45] LABS: ALKALINE PHOSPHATASE 47 U/L (45-117); TOTAL BILIRUBIN ADULT 0.5 MG/DL (0.2-1.0); TOTAL PROTEIN 6.6 GM/DL (6.4-8.2)
[2017-09-16] MEDS ORDERED: ONDANSETRON HCL 4 MG/2 ML VIAL IV PUSH ONE (17:45)
[2017-09-16] MEDS ORDERED: HYDROmorphone HCL PF 1 MG/ML VIAL IV PUSH ONE (17:45)
[2017-09-16] MEDS: SODIUM CHLORIDE 0.9% FLUSH 10 ML FLUSH IVF PRN (17:57)
[2017-09-16 18:00] VITALS: BP 134/64; PULSE 99; RESP 16; O2SAT 98
[2017-09-16] MEDS ORDERED: HYDROmorphone HCL PF 2 MG/ML VIAL IVS ONE (18:00)
[2017-09-16] MEDS ORDERED: ADVA100A INH (18:07)
[2017-09-16] MEDS ORDERED: POTA-163 PO (18:07)
[2017-09-16] MEDS ORDERED: VENTAER INH (18:07)
[2017-09-16] MEDS ORDERED: MAPA500T13 PO (18:07)
[2017-09-16] MEDS ORDERED: ROSU1TAB6 PO (18:07)
[2017-09-16] MEDS ORDERED: FURO20TA PO (18:07)
[2017-09-16] MEDS ORDERED: METH2.5T PO (18:07)
--- NOTE | 2017-09-16 18:29 | HHI.HP ---
[facility] Sung Whitt DO Admission Diagnosis RIGHT INTERTROCHANTERIC FRACTURE Diagnoses: Chief Complaint: s/p post fall right hip pain Travel History International Travel<30 Days: No Contact w/Intl Traveler <30 Da: No Traveled to Known Affected Are: No History of Present Illness Patient is a very pleasant 72-year-old female with known history of coronary artery disease status post stent in October [address] Church baseline have some vision impairment and uses a cane occasionally and this afternoon while shopping at [employer] patient tripped and fell. She was unable to get up and EVAC was called and brought in here for evaluation. - found to have right trochanteric fracture Patient denies any syncopal episodes. Denies any dizziness chest pain shortness of breath prior to or after the episode of fall. Patient cardiac morris has been doing well and the only other thing is lately for the past 2 weeks has been having leg swelling at the end of the day and was prescribed furosemide 20 mg daily with improvement. Orthopedic services was consulted from ER Review of Systems Constitutional: DENIES: Diaphoretic episodes, Fatigue, Fever, Weight gain, Weight loss, Chills, Dizziness, Change in appetite, Night Sweats Endocrine: DENIES: Abnorml menstrual pattern, Heat/cold intolerance, Polydipsia , Polyuria, Polyphagia Eyes: COMPLAINS OF: Blurred vision (patient admits to some visual impairment) Ears, nose, mouth, throat: DENIES: Tinnitus, Hearing loss, Vertigo, Nasal discharge, Oral lesions, Throat pain, Hoarseness, Ear Pain, Running Nose, Epistaxis, Sinus Pain, Toothache, Odynophagia Respiratory: DENIES: Apneas, Cough, Snoring, Wheezing, Hemoptysis, Sputum production, Shortness of breath Cardiovascular: DENIES: Chest pain, Palpitations, Syncope, Dyspnea on Exertion , PND, Lower Extremity Edema, Orthopnea, Claudication Gastrointestinal: DENIES: Abdominal pain, Black stools, Bloody stools, Constipation, Diarrhea, Nausea, Vomiting, Difficulty Swallowing, Anorexia Genitourinary: DENIES: Abnormal vaginal bleeding, Dysmenorrhea, Dyspareunia, Sexual dysfunction, Urinary frequency, Urinary incontinence, Urgency, Hematuria , Dysuria, Nocturia, Vaginal discharge Musculoskeletal: DENIES: Joint pain, Muscle aches, Stiffness, Joint Swelling, Back pain, Neck pain Integumentary: DENIES: Abnormal pigmentation, Pruritus, Rash, Nail changes, Breast masses, Breast skin changes, Nipple discharge Hematologic/lymphatic: DENIES: Bruising, Lymphadenopathy Immunologic/allergic: DENIES: Eczema, Urticaria Neurologic: DENIES: Abnormal gait, Headache, Localized weakness, Paresthesias, Seizures, Speech Problems, Tremor, Poor Balance Psychiatric: DENIES: Anxiety, Confusion, Mood changes, Depression, Hallucinations, Agitation, Suicidal Ideation, Homicidal Ideation, Delusions Past Family Social History Past Medical History Coronary artery disease status post stent in October 2016 GERD Hyperreactive airway disease Rheumatoid arthritis Past Surgical History Right foot surgery in 2016 secondary to some "arthritis of the big toe" Right knee arthroscopic surgery 1968 Reported Medications Is most 30 mg daily Sertraline 25 mg every morning Brilinta 90 mg twice a day Aspirin 81 mg daily Coreg 6.25 mg twice a Crestor 20 mg at bedtime Trazodone 50 mg at bedtime Omeprazole 40 mg daily Advair 1 puff twice a day Ventolin when necessary Tramadol 100 mg when necessary for pain Methotrexate 7.5 every weekly every Tuesday Furosemide 20 mg daily Potassium chloride 10 mEq daily Allergies: Coded Allergies: doxycycline (Unverified Allergy, Severe, Nausea/Vomiting, 03/23/17) codeine (Unverified Allergy, Intermediate, GI UPSET, 03/23/17) duloxetine (Unverified Allergy, Intermediate, ITCHING, 03/23/17) oxycodone (Unverified Allergy, Unknown, Nausea/Vomiting, 03/23/17) Family History Noncontributory Social History History of smoking quit 30 years ago Denies alcohol or substance abuse Physical Exam Vital Signs Vital Signs Date Time Temp Pulse Resp B/P (MAP) Pulse Ox O2 Delivery O2 Flow Rate FiO2 09/16/17 15:33 100 Room Air 09/16/17 15:10 Room Air 09/16/17 15:10 98.2 68 16 146/68 (94) 100 Physical Exam GENERAL: This is a well-nourished, well-developed patient, in no apparent distress. Looks young for her stated age SKIN: No rashes, ecchymoses or lesions. Cool and dry. HEAD: Atraumatic. Normocephalic. No temporal or scalp tenderness. EYES: Pupils equal round and reactive. Extraocular motions intact. No scleral icterus. No injection or drainage. ENT: Nose without bleeding, Throat without erythema, tonsillar hypertrophy or exudate. Uvula midline. Airway patent. NECK: Trachea midline. No JVD or lymphadenopathy. Supple, nontender, no meningeal signs. CARDIOVASCULAR: Regular rate and rhythm without murmurs, RESPIRATORY: Clear to auscultation. Breath sounds equal bilaterally. No wheezes , rales, or rhonchi. GASTROINTESTINAL: Abdomen soft, non-tender, No guarding. MUSCULOSKELETAL: Right lower extremity externally rotated and shorter good peripheral pulses grossly no sensory deficit no stones freely Extremities without clubbing, cyanosis, or edema. No joint tenderness, effusion , or edema noted. No calf tenderness. Negative Homans sign bilaterally. NEUROLOGICAL: Awake and alert. Cranial nerves II through XII intact. Motor and sensory grossly within normal limits. Normal speech. Laboratory Laboratory Tests Test 09/16/17 15:45 09/16/17 16:00 Urine Color YELLOW Urine Turbidity CLEAR Urine pH 7.0 Urine Specific [place] 1.011 Urine Protein NEG Urine Glucose (UA) NEG Urine Ketones NEG Urine Occult Blood NEG Urine Nitrite NEG Urine Bilirubin NEG Urine Urobilinogen LESS THAN 2.0 Urine Leukocyte Esterase NEG Urine WBC 1 Urine Hyaline Casts 19 Urine Mucus FEW Microscopic Urinalysis Comment CATH-CULT NOT IND White Blood Count 8.0 Red Blood Count 3.27 Hemoglobin 11.1 Hematocrit 32.6 Mean Corpuscular Volume 99.6 Mean Corpuscular Hemoglobin 34.0 Mean Corpuscular Hemoglobin Concent 34.1 Red Cell Distribution Width 15.6 Platelet Count 207 Mean Platelet Volume 8.4 Neutrophils (%) (Auto) 77.9 Lymphocytes (%) (Auto) 12.0 Monocytes (%) (Auto) 8.1 Eosinophils (%) (Auto) 1.1 Basophils (%) (Auto) 0.9 Neutrophils # (Auto) 6.3 Lymphocytes # (Auto) 1.0 Monocytes # (Auto) 0.7 Eosinophils # (Auto) 0.1 Basophils # (Auto) 0.1 CBC Comment DIFF FINAL Differential Comment Prothrombin Time 10.5 Prothromb Time International Ratio 1.0 Activated Partial Thromboplast Time 23.8 Blood Urea Nitrogen 9 Creatinine 0.62 Random Glucose 107 Total Protein 6.6 Albumin 3.6 Calcium Level 8.5 Alkaline Phosphatase 47 Aspartate Amino Transf (AST/SGOT) 30 Alanine Aminotransferase (ALT/SGPT) 22 Total Bilirubin 0.5 Sodium Level 140 Potassium Level 4.2 Chloride Level 107 Carbon Dioxide Level 27.7 Anion Gap 5 Estimat Glomerular Filtration Rate 94 Result Diagram: 09/16/17 1600 09/16/17 1600 Imaging Last Impressions Hip and Pelvis X-Ray 09/16/17 1525 Signed Impressions: Service Date/Time: Saturday, September 16, 2017 16:25 - CONCLUSION: Trochanteric fracture right hip. Hugh Parrish MD FACR Chest X-Ray 09/16/17 1525 Signed Impressions: Service Date/Time: Saturday, September 16, 2017 16:21 - CONCLUSION: No acute disease. Hugh Parrish MD FACR Caprini VTE Risk Assessment Caprini VTE Risk Assessment: Mod/High Risk (score >= 2) Caprini Risk Assessment Model Point Value = 1 Point Value = 2 Point Value = 3 Point Value = 5 Age 41-60 Minor surgery BMI > 25 kg/m2 Swollen legs Varicose veins or History of unexplained or recurrent spontaneous Oral contraceptives or hormone replacement Sepsis (< 1 month) Serious lung disease, including pneumonia (< 1 month) Abnormal pulmonary function Acute myocardial infarction Congestive heart failure (< 1 month) History of inflammatory bowel disease Medical patient at bed rest Age 61-74 Arthroscopic surgery Major open surgery (> 45 min) Laparoscopic surgery (> 45 min) Malignancy Confined to bed (> 72 hours) Immobilizing plaster cast Central venous access Age >= 75 History of VTE Family history of VTE Factor V Leiden Prothrombin [id number] Lupus anticoagulant Anticardiolipin antibodies Elevated serum homocysteine Heparin-induced thrombocytopenia Other congenital or acquired thrombophilia Stroke (< 1 month) Elective arthroplasty Hip, pelvis, or leg fracture Acute spinal cord injury (< 1 month) Prophylaxis Regimen Total Risk Factor Score Risk Level Prophylaxis Regimen 0-1 Low Early ambulation 2 Moderate Order ONE of the following: *Sequential Compression Device (SCD) *Heparin 5000 units SQ BID 3-4 Higher Order ONE of the following medications: *Heparin 5000 units SQ TID *Enoxaparin/Lovenox 40 mg SQ daily (WT < 150 kg, CrCl > 30 mL/min) *Enoxaparin/Lovenox 30 mg SQ daily (WT < 150 kg, CrCl > 10-29 mL/min) *Enoxaparin/Lovenox 30 mg SQ BID (WT < 150 kg, CrCl > 30 mL/min) AND/OR *Sequential Compression Device (SCD) 5 or more Highest Order ONE of the following medications: *Heparin 5000 units SQ TID (Preferred with Epidurals) *Enoxaparin/Lovenox 40 mg SQ daily (WT < 150 kg, CrCl > 30 mL/min) *Enoxaparin/Lovenox 30 mg SQ daily (WT < 150 kg, CrCl > 10-29 mL/min) *Enoxaparin/Lovenox 30 mg SQ BID (WT < 150 kg, CrCl > 30 mL/min) AND *Sequential Compression Device (SCD) Assessment and Plan Assessment and Plan 72-year-old female admitted for Right intertrochanteric fracture status post fall Orthopedic service is consulted. per ER MD- NPO post MN in the event of surgery IV Dilaudid prn for pain History of CAD status post stent - stable cardiac morris stable. 12-lead EKG no acute ST-T wave changes. Chest x-ray unremarkable Will continue on ISMO 30 mg daily Coreg 6.25 mg twice a day Crestor 20 mg at bedtime Hold Brilinta/ASA for now with planned procedure Family requested Dr. Church to be consulted Continue on Lasix 20 mg daily with potassium supplement History of GERD. Continue on omeprazole 40 mg daily History of hyperreactive airway disease/COPD. Continue on Advair 1 puff twice a day. Ventolin when necessary History of Anxiety disorder. continue on sertraline 25 mg every morning History of RA/ chronic pain- on methotrexate 7.5 mg SQ q Tuesday- hold. On Tramadol 100 mg po q 8 prn for pain DVT prophylaxis post op per Ortho CM - DC planning- will need SNF Discussed Condition With patient and spouse Physician Certification 2 Midnight Certification Type: Admission for Inpatient Services Order for Inpatient Services The services are ordered in accordance with Medicare regulations or non- Medicare payer requirements, as applicable. In the case of services not specified as inpatient-only, they are appropriately provided as inpatient services in accordance with the 2-midnight benchmark. Estimated LOS (days): 3 days is the estimated time the patient will need to remain in the hospital, assuming treatment plan goals are met and no additional complications. Post-Hospital Plan: Not yet determined Naveen Guaman MD Sep 16, 2017 18:29
[2017-09-16] MEDS ORDERED: ALBUTEROL SULFATE 90 MCG/ACT HFA 8 GM INHALER INH PRN (18:30)
[2017-09-16 19:01] VITALS: BP 135/62; PULSE 75; RESP 16; O2SAT 96
[2017-09-16] MEDS: BUDESONIDE-FORMOTEROL 80/4.5 MCG INHALER INH SCH (21:00)
[2017-09-16 21:31] VITALS: BP 118/57
[2017-09-16] MEDS: HYDROmorphone HCL PF 2 MG/ML VIAL IV PRN (21:31)
[2017-09-16 21:33] VITALS: BP 172/71; PULSE 80; RESP 15; TEMP 97.4; O2SAT 96
[2017-09-16] MEDS: PANTOPRAZOLE SOD 40 MG DELAYED RELEASE TAB PO SCH (21:52)
[2017-09-16] MEDS: traMADol HCL 50 MG TAB PO SCH (21:52)
[2017-09-16] MEDS: CARVEDILOL 6.25 MG TAB PO SCH (21:52)
[2017-09-16] MEDS: traZODone HCL 50 MG TAB PO SCH (21:52)
[2017-09-16] MEDS: ATORVASTATIN 20 MG TAB PO SCH (21:53)
[2017-09-17] VITALS (12 sets, daily range): BP systolic 102–165; BP diastolic 51–75; PULSE 71–87; RESP 16–17; TEMP 97.2–99.5; O2SAT 91–97
[2017-09-17] MEDS ORDERED: POVIDONE IODINE 5% (ANTISEPSIS KIT) 4 APPLICATIONS EACH NARE PRN (03:30)
[2017-09-17] MEDS ORDERED: CHLORHEXIDINE GLUCONATE 2 % 1 PACK (2 CLOTHS) TOPICAL PRN (03:30)
[2017-09-17] MEDS ORDERED: LACTATED RINGER'S 1000 ML IV PRN (03:30)
[2017-09-17] MEDS: HYDROmorphone HCL PF 2 MG/ML VIAL IV PRN ×5 (03:49→23:22)
[2017-09-17] MEDS: traMADol HCL 50 MG TAB PO SCH ×4 (06:00→22:56)
[2017-09-17] MEDS: ISOSORBIDE MONONITRATE 30 MG TAB PO SCH (06:25)
--- NOTE | 2017-09-17 06:59 | PD.CONS ---
HPI Service Orthopedic Surgeons Consult Requested By Reason for Consult Right intertrochanteric femur fracture Primary Care Physician Sung Whitt DO Admission Diagnosis RIGHT INTERTROCHANTERIC FRACTURE Diagnoses: Chief Complaint: Right hip pain History of Present Illness 72-year-old female who presents after a trip and fall with acute onset right hip pain. Of note, patient had stents placed last year by Dr. cabrera. Denies any head trauma or loss of consciousness. Does report some right knee pain this morning. Review of Systems Constitutional: DENIES: Fever Endocrine: DENIES: Polyuria Eyes: DENIES: Blurred vision Ears, nose, mouth, throat: DENIES: Throat pain Respiratory: DENIES: Cough Cardiovascular: DENIES: Chest pain Gastrointestinal: DENIES: Abdominal pain Genitourinary: DENIES: Urinary incontinence Musculoskeletal: COMPLAINS OF: Joint pain, Joint Swelling Integumentary: DENIES: Rash Hematologic/lymphatic: DENIES: Bruising Immunologic/allergic: DENIES: Eczema Neurologic: DENIES: Abnormal gait Psychiatric: DENIES: Anxiety Past Family Social History Past Medical History Coronary artery disease status post stent in October 2016 GERD Hyperreactive airway disease Rheumatoid arthritis Past Surgical History Right foot surgery in 2016 secondary to some "arthritis of the big toe" Right knee arthroscopic surgery 1968 Allergies: Coded Allergies: doxycycline (Unverified Allergy, Severe, Nausea/Vomiting, 03/23/17) codeine (Unverified Allergy, Intermediate, GI UPSET, 03/23/17) duloxetine (Unverified Allergy, Intermediate, ITCHING, 03/23/17) oxycodone (Unverified Allergy, Unknown, Nausea/Vomiting, 03/23/17) Active Ordered Medications Current Medications Medications (Trade) Dose Ordered Sig/Alejandro Route Start Time Stop Time Status Last Admin (NS Flush) 2 ml UNSCH PRN IVF 09/16/17 15:30 09/16/17 17:57 (Proair Hfa Inh) 2 puff Q6HR PRN INH 09/16/17 18:30 (Coreg) 6.25 mg BID PO 09/16/17 21:00 09/16/17 21:52 (Lasix) 20 mg DAILY PO 09/17/17 09:00 (Imdur) 30 mg DAILY@07 PO 09/17/17 07:00 09/17/17 06:25 (KCl) 20 meq DAILY PO 09/17/17 09:00 (Desyrel) 50 mg HS PO 09/16/17 21:00 09/16/17 21:52 (Symbicort 80-4.5 Mcg Inh) 2 puff BID INH 09/16/17 21:00 (Protonix) 40 mg BID PO 09/16/17 21:00 09/16/17 21:52 (Lipitor) 20 mg HS PO 09/16/17 21:00 09/16/17 21:53 (Ultram) 50 mg Q8H PO 09/16/17 22:00 09/17/17 06:26 (Dilaudid Pf Inj) 0.5 mg Q4H PRN IV 09/16/17 20:00 09/17/17 03:49 Lactated Ringer's 1,000 ml @ 30 mls/hr Q24H PRN IV 09/17/17 03:30 09/20/17 03:29 (Betadine 5% Antisepsis Kit) 1 applic PEDIATRICS PHYSICIAN PRN EACH NARE 09/17/17 03:30 09/20/17 03:29 (Chlorhexidine 2% Cloth) 3 pack PEDIATRICS PHYSICIAN PRN TOPICAL 09/17/17 03:30 09/20/17 03:29 Reported Meds & Active Scripts Active Brilinta (Ticagrelor) 90 Mg Tab 90 Mg PO BID Isosorbide Mononitrate ER (Isosorbide Mononitrate) 30 Mg Keith 30 Mg PO DAILY@07 Coreg (Carvedilol) 6.25 Mg Tab 6.25 Mg PO BID [Aspirin Chew] 81 MG Chew 81 Mg PO DAILY Reported Potassium Chloride ER (Potassium Chloride) 20 Meq Tab 20 Meq PO DAILY Furosemide 20 Mg Tab 20 Mg PO DAILY Mapap Extra Strength (Acetaminophen) 500 Mg Tab 500 Mg PO Q4-6H PRN Ventolin Hfa 18 GM Inh (Albuterol Sulfate) 90 Mcg/Act Aer 2 Puff INH Q4-6H PRN Methotrexate 2.5 Mg Tab 7.5 Mg PO Q7D Advair Diskus Inh (Fluticasone-Salmeterol Inh) 100-50 Mcg/Blist Aer 1 Puff INH BID Rinse mouth after use. Rosuvastatin (Rosuvastatin Calcium) 10 Mg Tab 10 Mg PO HS Tramadol (Tramadol HCl) 50 Mg Tab 100 Mg PO Q8HR PRN Trazodone (Trazodone HCl) 50 Mg Tab 50 Mg PO HS Omeprazole 40 Mg Cap 40 Mg PO BID Family History Noncontributory Social History History of smoking quit 30 years ago Denies alcohol or substance abuse Physical Exam Vital Signs Vital Signs Date Time Temp Pulse Resp B/P (MAP) Pulse Ox O2 Delivery O2 Flow Rate FiO2 09/17/17 04:10 75 09/17/17 04:00 98.9 71 16 128/61 (83) 94 09/17/17 00:15 74 09/17/17 00:00 97.4 80 16 165/75 (105) 96 09/16/17 22:44 96 Room Air 09/16/17 21:33 97.4 80 15 172/71 (104) 96 09/16/17 21:31 70 20 118/57 (77) 96 09/16/17 19:01 80 15 96 Room Air 09/16/17 19:01 75 16 135/62 (86) 96 Room Air 09/16/17 18:00 99 16 134/64 (87) 98 Room Air 09/16/17 15:33 100 Room Air 09/16/17 15:10 Room Air 09/16/17 15:10 98.2 68 16 146/68 (94) 100 Physical Exam Awake, alert, no acute distress Normocephalic Pupils equal No JVD Moist mucous membranes Nonlabored respirations Regular rate Soft nontender abdomen Right lower extremity: Positive logroll. Unable to assess range of motion at hip and knee due to hip pain. Patient does have some mild tenderness palpation about the right knee. Neurovascularly intact distally with positive EHL, FHL, dorsiflexion and plantarflexion. Sensation appears intact. Dorsalis pedis pulses palpable. Bilateral upper extremity is in left lower extremity: No visible deformities or tenderness palpation. Full active range of motion and strength throughout. Sensation intact. Dorsalis pedis and radial pulses are palpable. No rash Normal affect Laboratory Laboratory Tests Test 09/16/17 15:45 09/16/17 16:00 Urine Color YELLOW Urine Turbidity CLEAR Urine pH 7.0 Urine Specific [place] 1.011 Urine Protein NEG Urine Glucose (UA) NEG Urine Ketones NEG Urine Occult Blood NEG Urine Nitrite NEG Urine Bilirubin NEG Urine Urobilinogen LESS THAN 2.0 Urine Leukocyte Esterase NEG Urine WBC 1 Urine Hyaline Casts 19 Urine Mucus FEW Microscopic Urinalysis Comment CATH-CULT NOT IND White Blood Count 8.0 Red Blood Count 3.27 Hemoglobin 11.1 Hematocrit 32.6 Mean Corpuscular Volume 99.6 Mean Corpuscular Hemoglobin 34.0 Mean Corpuscular Hemoglobin Concent 34.1 Red Cell Distribution Width 15.6 Platelet Count 207 Mean Platelet Volume 8.4 Neutrophils (%) (Auto) 77.9 Lymphocytes (%) (Auto) 12.0 Monocytes (%) (Auto) 8.1 Eosinophils (%) (Auto) 1.1 Basophils (%) (Auto) 0.9 Neutrophils # (Auto) 6.3 Lymphocytes # (Auto) 1.0 Monocytes # (Auto) 0.7 Eosinophils # (Auto) 0.1 Basophils # (Auto) 0.1 CBC Comment DIFF FINAL Differential Comment Prothrombin Time 10.5 Prothromb Time International Ratio 1.0 Activated Partial Thromboplast Time 23.8 Blood Urea Nitrogen 9 Creatinine 0.62 Random Glucose 107 Total Protein 6.6 Albumin 3.6 Calcium Level 8.5 Alkaline Phosphatase 47 Aspartate Amino Transf (AST/SGOT) 30 Alanine Aminotransferase (ALT/SGPT) 22 Total Bilirubin 0.5 Sodium Level 140 Potassium Level 4.2 Chloride Level 107 Carbon Dioxide Level 27.7 Anion Gap 5 Estimat Glomerular Filtration Rate 94 Result Diagram: 09/16/17 1600 09/16/17 1600 Imaging Last 24 hours Impressions Hip and Pelvis X-Ray 09/16/17 1525 Signed Impressions: Service Date/Time: Saturday, September 16, 2017 16:25 - CONCLUSION: Trochanteric fracture right hip. Hugh Parrish MD FACR Chest X-Ray 09/16/17 1525 Signed Impressions: Service Date/Time: Saturday, September 16, 2017 16:21 - CONCLUSION: No acute disease. Hugh Parrish MD FACR Assessment & Plan Assessment and Plan 72-year-old female with right intertrochanteric femur fracture after mechanical trip and fall Options of management were discussed with the patient. At this time I recommended operative intervention in the form of intramedullary nail of her right femur fracture. Risks, benefits, alternatives were discussed. Risks of surgery including but not limited to: Infection, nonunion or malunion, hardware malposition or failure, neurovascular injury, possible need for further surgery , and other unforeseen complications were all discussed with the patient. At this time she is consented to procedure. She is nothing by mouth for possible surgery later today. She does have cardiac history and therefore we'll ask cardiology to evaluate prior to surgery. Tammy Brown MD Sep 17, 2017 06:59
[2017-09-17] MEDS: CARVEDILOL 6.25 MG TAB PO SCH ×2 (08:40→20:44)
[2017-09-17] MEDS: PANTOPRAZOLE SOD 40 MG DELAYED RELEASE TAB PO SCH ×2 (08:41→20:44)
[2017-09-17] MEDS: POTASSIUM CHLORIDE 20 MEQ CONTROLLED RELEASE TAB PO SCH (08:42)
[2017-09-17] MEDS: SODIUM CHLORIDE 0.9% FLUSH 10 ML FLUSH IVF PRN ×3 (08:42→16:06)
[2017-09-17] MEDS: FUROSEMIDE 20 MG TAB PO SCH (08:42)
[2017-09-17] MEDS: BUDESONIDE-FORMOTEROL 80/4.5 MCG INHALER INH SCH ×2 (09:00→20:42)
--- NOTE | 2017-09-17 09:07 | HHI.PR ---
Subjective Remarks overnight-- no acute events some discomfort on shins Objective Vitals Vital Signs Date Time Temp Pulse Resp B/P (MAP) Pulse Ox O2 Delivery O2 Flow Rate FiO2 09/17/17 08:05 71 09/17/17 08:00 98.9 76 17 106/53 (70) 91 09/17/17 04:10 75 09/17/17 04:00 98.9 71 16 128/61 (83) 94 09/17/17 00:15 74 09/17/17 00:00 97.4 80 16 165/75 (105) 96 09/16/17 22:44 96 Room Air 09/16/17 21:33 97.4 80 15 172/71 (104) 96 09/16/17 21:31 70 20 118/57 (77) 96 09/16/17 19:01 80 15 96 Room Air 09/16/17 19:01 75 16 135/62 (86) 96 Room Air 09/16/17 18:00 99 16 134/64 (87) 98 Room Air 09/16/17 15:33 100 Room Air 09/16/17 15:10 Room Air 09/16/17 15:10 98.2 68 16 146/68 (94) 100 I/O 09/16/17 09/16/17 09/16/17 09/17/17 09/17/17 09/17/17 06:59 14:59 22:59 06:59 14:59 22:59 Intake Total 240 ml Output Total 200 ml 300 ml Balance 40 ml -300 ml Intake Oral 240 ml Output Urine Total 200 ml 300 ml Result Diagram: 09/16/17 1600 09/16/17 1600 Imaging Last Impressions Hip and Pelvis X-Ray 09/16/17 152 Signed Impressions: Service Date/Time: Saturday, September 16, 2017 16:25 - CONCLUSION: Trochanteric fracture right hip. Hugh Parrish MD FACR Chest X-Ray 09/16/17 1525 Signed Impressions: Service Date/Time: Saturday, September 16, 2017 16:21 - CONCLUSION: No acute disease. Hugh Parrish MD FACR Objective Remarks awake and alert, oriented x 3 anicteric lungs- no rales regular rhythm abdomen soft right LE- externally rotated and shorter A/P Assessment and Plan 72-year-old female admitted for Right intertrochanteric fracture status post fall Orthopedic service ff IV Dilaudid prn for pain History of CAD status post stent - stable cardiac morris stable. 12-lead EKG no acute ST-T wave changes. Chest x-ray unremarkable Will continue on ISMO 30 mg daily Coreg 6.25 mg twice a day Crestor 20 mg at bedtime Hold Brilinta/ASA for now with planned procedure Cardiology consulted Continue on Lasix 20 mg daily with potassium supplement History of GERD. Continue on omeprazole 40 mg daily History of hyperreactive airway disease/COPD. Continue on Advair 1 puff twice a day. Ventolin when necessary History of Anxiety disorder. continue on sertraline 25 mg every morning History of RA/ chronic pain- on methotrexate 7.5 mg SQ q Tuesday- hold. On Tramadol 100 mg po q 8 prn for pain DVT prophylaxis post op per Ortho CM - DC planning- will need [facility] Naveen Guaman MD Sep 17, 2017 09:07
--- NOTE | 2017-09-17 10:52 | MB ---
cc: AMAN CHAVES M.D., OTAKAR DATE OF CONSULTATION: 09/17/17 REASON FOR CONSULTATION History of CAD and PCI, now with right trochanteric fracture going for orthopedic surgery. HISTORY OF PRESENT ILLNESS Ms. Rivera is a pleasant 72-year-old lady with a history of coronary artery disease status post stenting of 99% RCA disease in October of 2016 as well as mid significant LAD disease with angioplasty of a diagonal branch done by Dr. Church. She has done well since then. Denies chest pains. Does not exercise on a regular basis. She has occasional shortness of breath but this is relieved with an inhaler (carries a diagnosis of COPD). Her LV systolic function at the time of the catheterization was normal with no significant valve pathology from the cardiac catheterization. Denies palpitations, dizziness or syncope. Denies orthopnea or PND. She has ankle swellings if she drives for long hours. Denies claudications. Does not exercise on a regular basis as mentioned. She was in [facility] and tripped and fell and there was no associated dizziness or palpitations or syncope, and that is when she sustained a right trochanteric fracture. REVIEW OF SYSTEMS A 12-point system review was unremarkable except what is mentioned in the History of Present Illness. PAST MEDICAL AND SURGICAL HISTORY Includes what is mentioned above. 1. History of GERD. 2. COPD or hyperreactive airway disease. 3. Rheumatoid arthritis. 4. Right foot surgery in 2015. 5. Right knee arthroplastic surgery in 1967. 6. History of hyperlipidemia. 7. History of depression/anxiety. MEDICATIONS Medications at home include the following. 1. Sertraline 25 mEq p.o. q.a.m. 2. Brilinta 90 mq p.o. b.i.d. 3. Ecotrin 81 mg p.o. q.d. 4. Coreg 6.25 mg p.o. b.i.d. 5. Crestor 20 mg p.o. q.h.s. 6. Trazodone 50 mg p.o. q.h.s. 7. Omeprazole 40 mg p.o. q.d 8. Advair and Ventolin inhalers. 9. Tramadol 100 mg p.r.n. with pain. 10. Methotrexate 7.5 mg once a week. 11. Lasix 20 mg daily. 12. KCl 20 mEq daily. ALLERGIES DOXYCYCLINE - MORE OF GI SIDE EFFECTS. CODEINE, DULOXETINE - GIVES HER ITCHING. OXYCODONE - SIDE EFFECT OF NAUSEA AND VOMITING. FAMILY HISTORY That what is mentioned above, is noncontributory. SOCIAL HISTORY Used to smoke but stopped three years ago. Denies EtOH abuse or recreational drug use. She is and lives with her . There are no birds. They drive in a motor home when they come to [place]. PHYSICAL EXAMINATION GENERAL: A 72-year-old lady lying in bed in no apparent distress. Alert and oriented x3, answering questions appropriately. VITAL SIGNS: Blood pressure 128/60 mmHg, pulse of 70 beats per minute and regular, respirations 14 per minute, afebrile. HEENT: Shows head is normocephalic. Pupils equal and reactive. Throat is within normal limits. LUNGS: Lung exam shows a few rhonchi at the left base but overall clear to auscultation and percussion. CARDIOVASCULAR: S1 and S2 are normal with a faint S4 gallop. A 1/6 systolic murmur across the precordium more prominent at the right second intercostal space. ABDOMEN: Obese but lax, nontender. Normoactive bowel sounds. No organomegaly. No masses felt. EXTREMITIES: No clubbing, cyanosis or edema. Right trochanteric fracture noted. PULSES: Pulses 2+ bilaterally and no bruit noted. NEUROLOGIC: Grossly intact with no focal deficits. RECTAL: Exam deferred. LABORATORY DATA White count of 8.0, hemoglobin 11.1, platelet count of 207. Sodium 140, potassium 4.2, BUN of 9, creatinine 0.62. LFTs within normal limits. Glucose 107. EKG showing sinus rhythm at 67 beats per minute with no acute ischemic changes. ASSESSMENT AND RECOMMENDATIONS Coronary artery disease status post PCI. Cardiac morris she is more or less asymptomatic. She had normal LV systolic function from her prior studies last year, and there is no reason for repeating them at this point because there are no associated cardiac symptoms. Based on the above, she showed an acceptable risk for postoperative cardiac events. She has been on dual antiplatelet therapy however which would increase her risk of bleeding during the surgery. Her Brilinta and Aspirin to be stopped and watch for bleeding risk and proceed cautiously. Post surgery she should resume only Aspirin 81 mg daily and plus/minus any DVT prophylaxis needed per orthopedic. Dr. Church will be back Tuesday. We will be available over the weekend on an as-needed basis. I thank you for the consultation. MD MOISES Ballesteros/GEOVANNY /9:55 AM /10:10 AM
[2017-09-17] MEDS ORDERED: DEXAMETHASONE SOD PHOS 4 MG/ML VIAL IV ONE (12:00)
[2017-09-17] MEDS ORDERED: ROCURONIUM INJ 50 MG/5 ML SYRINGE IV PUSH ONE (12:00)
[2017-09-17] MEDS ORDERED: ceFAZolin INJ 1,000 MG VIAL IV ONE (12:00)
[2017-09-17] MEDS ORDERED: PROPOFOL 200 MG/20 ML AMP IV ONE (12:00)
[2017-09-17] MEDS ORDERED: NEOSTIGMINE 5 MG/5 ML SYRINGE IV PUSH ONE (12:00)
[2017-09-17] MEDS ORDERED: ONDANSETRON HCL 4 MG/2 ML VIAL IV ONE (12:00)
[2017-09-17] MEDS ORDERED: LIDOCAINE HCL 1% PF 5 ML SYRINGE OTHER ONE (12:00)
[2017-09-17] MEDS ORDERED: GLYCOPYRROLATE 1 MG/5 ML SYRINGE IV PUSH ONE (12:00)
[2017-09-17] MEDS ORDERED: ePHEDrine/NS 25 MG/5 ML SYRINGE IV ONE (12:00)
[2017-09-17 12:50] LABS: HEMATOCRIT 28.5 % (35.0-46.0); HEMOGLOBIN 9.7 GM/DL (11.6-15.3); MEAN CELL VOLUME 99.9 FL (80.0-100.0); MEAN CORPUSCULAR HEMOGLOBIN 33.9 PG (27.0-34.0); MEAN CORPUSCULAR HGB CONC 33.9 % (32.0-36.0); MEAN PLATELET VOLUME 8.3 FL (7.0-11.0); PLATELET COUNT 148 TH/MM3 (150-450); RED BLOOD COUNT 2.85 MIL/MM3 (4.00-5.30); RED CELL DISTRIBUTION WIDTH 15.3 % (11.6-17.2); WHITE BLOOD COUNT 5.7 TH/MM3 (4.0-11.0)
[2017-09-17] MEDS ORDERED: SULF500T34 PO (12:56)
[2017-09-17] MEDS ORDERED: ACETAMINOPHEN 1000 MG/100 ML 0 ML IV ONE (16:18)
[2017-09-17] MEDS ORDERED: ARTIFICIAL TEARS OPTH OINT 3.5 APPLIC/3.5 GM TUBO ONE (16:43)
[2017-09-17] MEDS ORDERED: ACETAMINOPHEN 1000 MG/100 ML 100 ML IV ONE (16:43)
[2017-09-17] MEDS ORDERED: VANCOMYCIN HCL 1000 MG VIAL ONE (16:49)
[2017-09-17] MEDS ORDERED: GENTAMICIN SULFATE 80 MG/2 ML VIAL ONE (16:49)
--- NOTE | 2017-09-17 18:08 | HHI.PR ---
cc: Tammy Brown MD Immediate Post Op Note Procedure Date: Sep 17, 2017 Pre Op Diagnosis: Right closed intertrochanteric/basicervical femur fracture Post Op Diagnosis: same Surgeon: Tammy Brown Director Of Services(s): none Procedure: INtramedullary nail right intertrochanteric/basicervical femur fracture Complications: None Specimen(s) removed: None Estimated blood loss: 100 cc Anesthesia: General Drains: None IVF Patient to: PACU Patient Condition: Good Implant/Devices: SEE IMPLANT LOG (if applicable) Date/Time of Procedure: SEE SURGICAL CARE RECORD Tammy Brown MD Sep 17, 2017 18:08
[2017-09-17] MEDS ORDERED: Post-op Orders (for Pharmacy) XX ONE (18:15)
--- NOTE | 2017-09-17 18:27 | RADRPT ---
EXAM DATE/TIME: 09/17/2017 17:49 [facility] COMPARISON: HIP RIGHT (AP&LAT 2/3VWS) W AP PELVIS, September 16, 2017, 16:25. INDICATIONS : ORIF rt hip. MEDICAL HISTORY : None. SURGICAL HISTORY : None. ENCOUNTER: Subsequent ACUITY: 1 day PAIN SCORE: Non-responsive. LOCATION: Right Hip FINDINGS: C-arm matrix is revealed placement of the intramedullary krista and internal fixation device pins the fe moral head and neck transfixing the intertrochanteric fracture into good alignment and approximation of fragments. CONCLUSION: Fixation intertrochanteric fracture into good alignment and approximation of fragments Renny Bronson MD on September 17, 2017 at 18:24 Board Certified Radiologist. This report was verified electronically.
[2017-09-17] MEDS ORDERED: MORPHINE SULFATE 4 MG/ML INJ ONE ×2 (18:29→18:31)
[2017-09-17] MEDS ORDERED: *morphine SULFATE 4 MG/ML PERIprocedure ONLY ONE ×2 (18:30→18:55)
[2017-09-17] MEDS ORDERED: DO NOT ADM ANY ANTICOAGULANT DRUGS PRN (19:00)
--- NOTE | 2017-09-17 19:02 | RADRPT ---
EXAM DATE/TIME: 09/17/2017 18:29 [facility] COMPARISON: No previous studies available for comparison. INDICATIONS : Pain post fall. MEDICAL HISTORY : None. SURGICAL HISTORY : None. ENCOUNTER: Initial ACUITY: 1 day PAIN SCORE: Non-responsive. LOCATION: Right Knee FINDINGS: There is marked degenerative change of the medial joint compartment with significant loss of articula r cartilage and joint space narrowing as well as eburnation subchondral sclerosis both sides of joint space and hypertrophic spurring. There is no evidence fracture, dislocation, or destructive change. CONCLUSION: Severe degenerative changes medial joint compartment Renny Bronson MD on September 17, 2017 at 18:59 Board Certified Radiologist. This report was verified electronically.
[2017-09-17] MEDS: traZODone HCL 50 MG TAB PO SCH (20:44)
[2017-09-17] MEDS: SODIUM CHLORIDE 0.9% FLUSH 10 ML FLUSH IV FLUSH SCH (20:44)
[2017-09-17] MEDS: ATORVASTATIN 20 MG TAB PO SCH (20:45)
[2017-09-17] MEDS: SODIUM CHLORIDE 0.9% FLUSH 10 ML FLUSH IV FLUSH PRN (23:22)
--- NOTE | 2017-09-17 23:59 | EKG ---
Date Performed: 09/16/2017 Time Performed: 15:39:34 PTAGE: 72 years EKG: Sinus rhythm NORMAL ECG INTERPRETATION BASED ON A DEFAULT AGE OF 40 YEARS PREVIOUS TRACING : 10/09/2016 06.23 Compared to prior tracing, non-specific ST/T wave ch anges no longer noted DOCTOR: Pérez Johnson Interpretating Date/Time 09/17/2017 23:58:57
[2017-09-18] VITALS (13 sets, daily range): BP systolic 104–148; BP diastolic 51–66; PULSE 70–92; RESP 17–18; TEMP 98.5–99.4; O2SAT 92–94
[2017-09-18] MEDS: SODIUM CHLORIDE 0.9% FLUSH 10 ML FLUSH IV FLUSH PRN ×2 (04:19→12:00)
[2017-09-18] MEDS: HYDROmorphone HCL PF 2 MG/ML VIAL IV PRN ×4 (04:19→15:58)
[2017-09-18] MEDS: traMADol HCL 50 MG TAB PO SCH ×3 (06:49→21:18)
[2017-09-18] MEDS: ENOXAPARIN SODIUM 40 MG/0.4 ML SYRINGE SQ SCH (06:49)
[2017-09-18] MEDS: ISOSORBIDE MONONITRATE 30 MG TAB PO SCH (07:33)
--- NOTE | 2017-09-18 08:16 | HHI.PR ---
Subjective Remarks no pain complains no shortness of breath or chest discomfort Objective Vitals Vital Signs Date Time Temp Pulse Resp B/P (MAP) Pulse Ox O2 Delivery O2 Flow Rate FiO2 09/18/17 07:32 98.9 87 18 148/64 (92) 94 09/18/17 03:10 99.4 86 18 140/66 (90) 93 09/18/17 00:00 81 09/17/17 23:10 97.2 87 17 104/54 (71) 93 09/17/17 19:29 98.1 81 17 139/65 (89) 97 09/17/17 19:15 Nasal Cannula 2.00 09/17/17 19:00 97.5 77 14 148/65 (92) 100 Nasal Cannula 2 09/17/17 18:45 72 14 157/67 (97) 99 Nasal Cannula 2 09/17/17 18:30 79 14 150/53 (85) 100 Nasal Cannula 2 09/17/17 18:15 97.5 78 14 176/72 (106) 100 Nasal Cannula 2 09/17/17 16:00 99.5 76 17 115/53 (73) 91 09/17/17 14:00 72 09/17/17 12:15 73 09/17/17 11:57 99.2 72 17 102/51 (68) 94 I/O 09/17/17 09/17/17 09/17/17 09/18/17 09/18/17 09/18/17 07:00 15:00 23:00 07:00 15:00 23:00 Intake Total 0 ml 740 ml 580 ml Output Total 300 ml 400 ml 1300 ml 150 ml Balance -300 ml -400 ml -560 ml 430 ml Intake Oral 0 ml 240 ml 480 ml IV Total 500 ml 100 ml Output Urine Total 300 ml 400 ml 150 ml 150 ml Estimated Blood Loss 150 ml Other 1000 ml # Voids 100 # Bowel Movements 0 0 0 Result Diagram: 09/17/17 1200 09/16/17 1600 Imaging Last Impressions Knee X-Ray 09/17/17 0000 Signed Impressions: Service Date/Time: Sunday, September 17, 2017 18:29 - CONCLUSION: Severe degenerative changes medial joint compartment Renny Bronson MD Hip X-Ray 09/17/17 0000 Signed Impressions: Service Date/Time: Sunday, September 17, 2017 17:49 - CONCLUSION: Fixation intertrochanteric fracture into good alignment and approximation of fragments Renny Bronson MD Hip and Pelvis X-Ray 09/16/17 1525 Signed Impressions: Service Date/Time: Saturday, September 16, 2017 16:25 - CONCLUSION: Trochanteric fracture right hip. Hugh Parrish MD FACR Chest X-Ray 09/16/17 1525 Signed Impressions: Service Date/Time: Saturday, September 16, 2017 16:21 - CONCLUSION: No acute disease. Hugh Parrish MD FACR Objective Remarks awake and alert, oriented x 3 anicteric lungs- no rales regular rhythm abdomen soft right hip- post op dressing in place no calf swelling or tenderness good peripheral pulses Procedures 09/17- IMN right trochanteric fracture A/P Assessment and Plan 72-year-old female S/P fall admitted S/P IMN for Right intertrochanteric fracture 09/17 Orthopedic service ff pain meds prn History of CAD status post stent - stable cardiac morris stable. 12-lead EKG no acute ST-T wave changes. Chest x-ray unremarkable Will continue on ISMO 30 mg daily Coreg 6.25 mg twice a day Crestor 20 mg at bedtime Brilinta held,.Restart ASA post op Continue on Lasix 20 mg daily with potassium supplement Cardiology input appreciated History of GERD. Continue on omeprazole 40 mg daily History of hyperreactive airway disease/COPD. Continue on Advair 1 puff twice a day. Ventolin when necessary History of Anxiety disorder. continue on sertraline 25 mg every morning History of RA/ chronic pain- on methotrexate 7.5 mg SQ q Tuesday- hold. On Tramadol 100 mg po q 8 prn for pain DVT prophylaxis - Lovenox [facility] - DC planning- will need [facility] Naveen Guaman MD Sep 18, 2017 08:16
[2017-09-18] MEDS: BUDESONIDE-FORMOTEROL 80/4.5 MCG INHALER INH SCH ×2 (08:44→21:16)
[2017-09-18] MEDS: CARVEDILOL 6.25 MG TAB PO SCH ×2 (08:44→21:18)
[2017-09-18] MEDS: POTASSIUM CHLORIDE 20 MEQ CONTROLLED RELEASE TAB PO SCH (08:44)
[2017-09-18] MEDS: PANTOPRAZOLE SOD 40 MG DELAYED RELEASE TAB PO SCH ×2 (08:44→21:18)
[2017-09-18] MEDS: ASPIRIN 81 MG CHEW TAB CHEW SCH (08:44)
[2017-09-18] MEDS: FUROSEMIDE 20 MG TAB PO SCH (08:44)
[2017-09-18] MEDS: SODIUM CHLORIDE 0.9% FLUSH 10 ML FLUSH IV FLUSH SCH ×2 (08:45→21:17)
--- NOTE | 2017-09-18 12:42 | PD.ORT.PN ---
Subjective Subjective Remarks Patient resting comfortably. States her pain is well controlled. Reports knee pain significantly improved since surgery Objective Vitals Vital Signs Date Time Temp Pulse Resp B/P (MAP) Pulse Ox O2 Delivery O2 Flow Rate FiO2 09/18/17 12:00 99.0 77 18 112/57 (75) 92 09/18/17 10:54 83 09/18/17 08:15 89 09/18/17 07:32 98.9 87 18 148/64 (92) 94 09/18/17 03:10 99.4 86 18 140/66 (90) 93 09/18/17 00:00 81 09/17/17 23:10 97.2 87 17 104/54 (71) 93 09/17/17 19:29 98.1 81 17 139/65 (89) 97 09/17/17 19:15 Nasal Cannula 2.00 09/17/17 19:00 97.5 77 14 148/65 (92) 100 Nasal Cannula 2 09/17/17 18:45 72 14 157/67 (97) 99 Nasal Cannula 2 09/17/17 18:30 79 14 150/53 (85) 100 Nasal Cannula 2 09/17/17 18:15 97.5 78 14 176/72 (106) 100 Nasal Cannula 2 09/17/17 16:00 99.5 76 17 115/53 (73) 91 09/17/17 14:00 72 I/O 09/17/17 09/17/17 09/17/17 09/18/17 09/18/17 09/18/17 07:00 15:00 23:00 07:00 15:00 23:00 Intake Total 0 ml 740 ml 580 ml Output Total 300 ml 400 ml 1300 ml 150 ml Balance -300 ml -400 ml -560 ml 430 ml Intake Oral 0 ml 240 ml 480 ml IV Total 500 ml 100 ml Output Urine Total 300 ml 400 ml 150 ml 150 ml Estimated Blood Loss 150 ml Other 1000 ml # Voids 100 # Bowel Movements 0 0 0 Result Diagram: 09/17/17 1200 09/16/17 1600 Objective Remarks Awake, alert, no acute distress Right lower extremity: Dressings in place without any significant drainage. Neurovascularly intact distally. Negative Homans Assessment & Plan Assessment and Plan 72-year-old female, POD#1 s/p right intramedullary nail for intertrochanteric femur fracture 1. Partial weightbearing 50% to right lower extremity 2. Physical therapy for mobilization 3. Lovenox for DVT prophylaxis while in house with plan to xarelto to upon discharge 4. Dressing changes to start postop day 2 5. Ortho stable for discharge. Plan to follow up 2 weeks after discharge. Tammy Brown MD Sep 18, 2017 12:42
[2017-09-18] MEDS ORDERED: TRAM50 PO (12:44)
[2017-09-18] MEDS ORDERED: XARE10TA PO (12:44)
[2017-09-18] MEDS: ATORVASTATIN 20 MG TAB PO SCH (21:18)
[2017-09-18] MEDS: traZODone HCL 50 MG TAB PO SCH (21:18)
[2017-09-19] VITALS: PULSE 77
[2017-09-19] MEDS: HYDROmorphone HCL PF 2 MG/ML VIAL IV PRN (02:00)
[2017-09-19] MEDS: SODIUM CHLORIDE 0.9% FLUSH 10 ML FLUSH IVF PRN (02:01)
[2017-09-19 03:40] VITALS: BP 111/53; PULSE 76; RESP 18; TEMP 98.9; O2SAT 93
[2017-09-19 04:00] VITALS: PULSE 78
[2017-09-19] MEDS: ISOSORBIDE MONONITRATE 30 MG TAB PO SCH (06:20)
[2017-09-19] MEDS: ENOXAPARIN SODIUM 40 MG/0.4 ML SYRINGE SQ SCH (06:20)
[2017-09-19] MEDS: traMADol HCL 50 MG TAB PO SCH ×2 (06:20→13:52)
--- NOTE | 2017-09-19 07:43 | HHI.PR ---
Subjective Remarks awake and alert, minimal pain post op- "pain meds helping" + flatus, voiding spontaneously Objective Vitals Vital Signs Date Time Temp Pulse Resp B/P (MAP) Pulse Ox O2 Delivery O2 Flow Rate FiO2 09/19/17 04:00 78 09/19/17 03:40 98.9 76 18 111/53 (72) 93 09/19/17 00:00 77 09/18/17 23:10 98.8 83 18 118/56 (76) 94 09/18/17 20:00 81 09/18/17 19:36 70 09/18/17 19:05 98.9 82 17 111/51 (71) 93 09/18/17 17:48 78 09/18/17 16:00 98.5 78 18 104/51 (68) 92 09/18/17 13:30 92 09/18/17 12:00 99.0 77 18 112/57 (75) 92 09/18/17 10:54 83 09/18/17 08:15 89 I/O 09/18/17 09/18/17 09/18/17 09/19/17 09/19/17 09/19/17 07:00 15:00 23:00 07:00 15:00 23:00 Intake Total 580 ml 720 ml 480 ml 480 ml Output Total 150 ml 400 ml Balance 430 ml 320 ml 480 ml 480 ml Intake Oral 480 ml 720 ml 480 ml 480 ml IV Total 100 ml Output Urine Total 150 ml 400 ml # Voids 3 4 # Bowel Movements 0 0 0 0 Result Diagram: 09/17/17 1200 09/16/17 1600 Imaging Last Impressions Knee X-Ray 09/17/17 0000 Signed Impressions: Service Date/Time: Sunday, September 17, 2017 18:29 - CONCLUSION: Severe degenerative changes medial joint compartment Renny Bronson MD Hip X-Ray 09/17/17 0000 Signed Impressions: Service Date/Time: Sunday, September 17, 2017 17:49 - CONCLUSION: Fixation intertrochanteric fracture into good alignment and approximation of fragments Renny Bronson MD Hip and Pelvis X-Ray 09/16/17 1525 Signed Impressions: Service Date/Time: Saturday, September 16, 2017 16:25 - CONCLUSION: Trochanteric fracture right hip. Hugh Parrish MD FACR Chest X-Ray 09/16/17 1525 Signed Impressions: Service Date/Time: Saturday, September 16, 2017 16:21 - CONCLUSION: No acute disease. Hugh Parrish MD FACR Objective Remarks awake and alert, oriented x 3 anicteric lungs- no rales regular rhythm abdomen soft right hip- post op dressing in place no calf swelling or tenderness good peripheral pulses Procedures 09/17- IMN right trochanteric fracture A/P Assessment and Plan 72-year-old female S/P fall admitted S/P IMN for Right intertrochanteric fracture 09/17 Orthopedic service ff pain meds prn PT/OT daily History of CAD status post stent - stable Will continue on ISMO 30 mg daily Coreg 6.25 mg twice a day Crestor 20 mg at bedtime Brilinta held,.Restarted ASA Continue on Lasix 20 mg daily with potassium supplement Cardiology- ff- Dr. Church History of GERD. Continue on omeprazole 40 mg daily History of hyperreactive airway disease/COPD. Continue on Advair 1 puff twice a day. Ventolin when necessary History of Anxiety disorder. continue on sertraline 25 mg every morning History of RA/ chronic pain- on methotrexate 7.5 mg SQ q Tuesday- hold. On Tramadol 100 mg po q 8 prn for pain Pericolace prn for BM DVT prophylaxis - Lovenox. Xarelto on DC CM - DC planning- will need [facility] Naveen Gumaan MD Sep 19, 2017 07:42
[2017-09-19 08:00] VITALS: BP 108/56; PULSE 77; RESP 18; TEMP 96.3; O2SAT 100
[2017-09-19] MEDS ORDERED: traMADol HCL 50 MG TAB PO PRN (08:00)
--- NOTE | 2017-09-19 08:01 | PD.ORT.PN ---
Subjective Subjective Remarks Patient resting comfortably. States her pain is well controlled. Objective Vitals Vital Signs Date Time Temp Pulse Resp B/P (MAP) Pulse Ox O2 Delivery O2 Flow Rate FiO2 09/19/17 04:00 78 09/19/17 03:40 98.9 76 18 111/53 (72) 93 09/19/17 00:00 77 09/18/17 23:10 98.8 83 18 118/56 (76) 94 09/18/17 20:00 81 09/18/17 19:36 70 09/18/17 19:05 98.9 82 17 111/51 (71) 93 09/18/17 17:48 78 09/18/17 16:00 98.5 78 18 104/51 (68) 92 09/18/17 13:30 92 09/18/17 12:00 99.0 77 18 112/57 (75) 92 09/18/17 10:54 83 09/18/17 08:15 89 I/O 09/18/17 09/18/17 09/18/17 09/19/17 09/19/17 09/19/17 07:00 15:00 23:00 07:00 15:00 23:00 Intake Total 580 ml 720 ml 480 ml 480 ml Output Total 150 ml 400 ml Balance 430 ml 320 ml 480 ml 480 ml Intake Oral 480 ml 720 ml 480 ml 480 ml IV Total 100 ml Output Urine Total 150 ml 400 ml # Voids 3 4 # Bowel Movements 0 0 0 0 Result Diagram: 09/17/17 1200 09/16/17 1600 Objective Remarks Awake, alert, no acute distress Right lower extremity: Dressings in place without any significant drainage. Neurovascularly intact distally. Negative Homans Assessment & Plan Assessment and Plan 72-year-old female, POD#2 s/p right intramedullary nail for intertrochanteric femur fracture 1. Partial weightbearing 50% to right lower extremity 2. Physical therapy for mobilization 3. Lovenox for DVT prophylaxis while in house with plan to xarelto to upon discharge 4. Dressing changes to start postop day 2 5. Ortho stable for discharge. Plan to follow up 2 weeks after discharge. Tammy Brown MD Sep 19, 2017 08:00
[2017-09-19] MEDS: CARVEDILOL 6.25 MG TAB PO SCH (09:00)
[2017-09-19] MEDS: FUROSEMIDE 20 MG TAB PO SCH (09:00)
[2017-09-19] MEDS ORDERED: DOCUSATE SODIUM 50 MG/SENNA 8.6 MG TAB PO SCH (09:00)
[2017-09-19] MEDS: PANTOPRAZOLE SOD 40 MG DELAYED RELEASE TAB PO SCH (09:29)
[2017-09-19] MEDS: ASPIRIN 81 MG CHEW TAB CHEW SCH (09:30)
[2017-09-19] MEDS: POTASSIUM CHLORIDE 20 MEQ CONTROLLED RELEASE TAB PO SCH (09:30)
[2017-09-19] MEDS: SODIUM CHLORIDE 0.9% FLUSH 10 ML FLUSH IV FLUSH SCH (09:31)
[2017-09-19] MEDS: BUDESONIDE-FORMOTEROL 80/4.5 MCG INHALER INH SCH (10:27)
--- NOTE | 2017-09-19 10:30 | HHI.DS ---
Discharge Summary Admission Date Sep 16, 2017 at 17:42 Discharge Date: Sep 19, 2017 Admitting Diagnosis RIGHT INTERTROCHANTERIC FRACTURE (1) Intertrochanteric fracture of right hip ICD Code: S72.141A - Displaced intertrochanteric fracture of right femur, initial encounter for closed fracture Status: Acute Procedures 09/17- IMN right trochanteric fracture Brief History - From Admission Patient is a very pleasant 72-year-old female with known history of coronary artery disease status post stent in October [address] Church baseline have some vision impairment and uses a cane occasionally and this afternoon while shopping at [employer] patient tripped and fell. She was unable to get up and [facility] was called and brought in here for evaluation. - found to have right trochanteric fracture Patient denies any syncopal episodes. Denies any dizziness chest pain shortness of breath prior to or after the episode of fall. Patient cardiac morris has been doing well and the only other thing is lately for the past 2 weeks has been having leg swelling at the end of the day and was prescribed furosemide 20 mg daily with improvement. Orthopedic services was consulted from ER CBC/BMP: 09/17/17 1200 09/16/17 1600 Significant Findings Laboratory Tests Test 09/16/17 15:45 09/16/17 16:00 09/17/17 12:00 Urine Mucus FEW /lpf (OCC) Red Blood Count 3.27 MIL/MM3 (4.00-5.30) 2.85 MIL/MM3 (4.00-5.30) Hemoglobin 11.1 GM/DL (11.6-15.3) 9.7 GM/DL (11.6-15.3) Hematocrit 32.6 % (35.0-46.0) 28.5 % (35.0-46.0) Neutrophils (%) (Auto) 77.9 % (16.0-70.0) Monocytes (%) (Auto) 8.1 % (0.0-8.0) Activated Partial Thromboplast Time 23.8 SEC (24.3-30.1) Random Glucose 107 MG/DL (74-106) Platelet Count 148 TH/MM3 (150-450) Imaging Last Impressions Knee X-Ray 09/17/17 0000 Signed Impressions: Service Date/Time: Sunday, September 17, 2017 18:29 - CONCLUSION: Severe degenerative changes medial joint compartment Renny Bronson MD Hip X-Ray 09/17/17 0000 Signed Impressions: Service Date/Time: Sunday, September 17, 2017 17:49 - CONCLUSION: Fixation intertrochanteric fracture into good alignment and approximation of fragments Renny Bronson MD Hip and Pelvis X-Ray 09/16/17 1525 Signed Impressions: Service Date/Time: Saturday, September 16, 2017 16:25 - CONCLUSION: Trochanteric fracture right hip. Hugh Parrish MD FACR Chest X-Ray 09/16/17 1525 Signed Impressions: Service Date/Time: Saturday, September 16, 2017 16:21 - CONCLUSION: No acute disease. Hugh Parrish MD FACR PE at Discharge awake and alert, oriented x 3 anicteric lungs- no rales regular rhythm abdomen soft right hip- post op dressing in place no calf swelling or tenderness good peripheral pulses Pt update on day of discharge afebrile motivated with therapy pain controlled Hospital Course 72-year-old female S/P fall admitted S/P IMN for Right intertrochanteric fracture 09/17 Orthopedic service ff pain meds prn PT/OT daily History of CAD status post stent - stable Will continue on ISMO 30 mg daily Coreg 6.25 mg twice a day Crestor 20 mg at bedtime Brilinta held,.Restarted ASA Continue on Lasix 20 mg daily with potassium supplement Cardiology- ff- Dr. Church History of GERD. Continue on omeprazole 40 mg daily History of hyperreactive airway disease/COPD. Continue on Advair 1 puff twice a day. Ventolin when necessary History of Anxiety disorder. continue on sertraline 25 mg every morning History of RA/ chronic pain- on methotrexate 7.5 mg SQ q Tuesday- hold. On Tramadol 100 mg po q 8 prn for pain Pericolace prn for BM DVT prophylaxis - Lovenox. Xarelto on DC CM - DC planning- SNF today Pt Condition on Discharge: Stable Discharge Disposition: Rehab Inpatient Discharge Time: <= 30 minutes Discharge Instructions DIET: Follow Instructions for: Heart Healthy Diet Speech Therapy-Diet Recommends: Regular Activities you can perform: See Additionl Instruction Other Activity Instructions: 50% weightbearing right LE Follow up Referrals: Orthopedics - 2 Weeks @ [facility] with Tammy Brown MD New Medications: Rivaroxaban (Xarelto) 10 Mg Tab 10 MG PO DAILY for Blood Clot Prevention for 14 Days, #14 TAB 0 Refills Tramadol (Ultram) 50 Mg Tab 50 MG PO Q8H for Pain Management, #45 TAB Continued Medications: Albuterol 18 GM Inh (Ventolin Hfa 18 GM Inh) 90 Mcg/Act Aer 2 PUFF INH Q4-6H PRN for SHORTNESS OF BREATH, #1 INHALER 0 Refills Carvedilol (Coreg) 6.25 Mg Tab 6.25 MG PO BID for hypertension, #60 TAB Fluticasone-Salmeterol Inh (Advair Diskus Inh) 100-50 Mcg/Blist Aer 1 PUFF INH BID for Asthma Management, #1 INHALER 0 Refills Rinse mouth after use. Furosemide (Furosemide) 20 Mg Tab 20 MG PO DAILY, #30 TAB 0 Refills Isosorbide Mononitrate ER (Isosorbide Mononitrate ER) 30 Mg Keiht 30 MG PO DAILY@07 for angina, #30 TAB Methotrexate (Methotrexate) 2.5 Mg Tab 7.5 MG PO Q7D, TAB 0 Refills Omeprazole (Omeprazole) 40 Mg Cap 40 MG PO BID, #30 CAP 0 Refills Potassium Chloride ER (Potassium Chloride ER) 20 Meq Tab 20 MEQ PO DAILY for Electrolyte Replacement, #30 TAB 0 Refills Rosuvastatin (Rosuvastatin) 10 Mg Tab 10 MG PO HS for Cholesterol Management, TAB [address] (Sulfasalazine DR) 500 Mg Tab 500 MG PO BID, #60 TAB 0 Refills Trazodone (Trazodone) 50 Mg Tab 50 MG PO HS for Control Depression, #30 TAB 0 Refills [Aspirin Chew] () 81 MG CHEW 81 MG PO DAILY, #30 TAB.CHEW Discontinued Medications: Tramadol (Tramadol) 50 Mg Tab 100 MG PO Q8HR PRN for PAIN, TAB 0 Refills Naveen Guaman MD Sep 19, 2017 10:30
[2017-09-19 12:00] VITALS: BP 115/57; PULSE 80; RESP 18; TEMP 98.6; O2SAT 96
[2017-09-19] MEDS ORDERED: BISACODYL 10 MG SUPP RECTAL PRN (12:15)
--- NOTE | 2017-09-21 07:47 | PD.OP ---
cc: Tammy Brown MD Operative Report Date of Surgery: Sep 17, 2017 Preoperative Diagnosis: Closed right intertrochanteric/basicervical femur fracture Postoperative Diagnosis: same Procedure: Intramedullary nail right intertrochanteric femur fracture Anesthesia: General Surgeon: Tammy Brown Cath Lab Radiology Technician(s): none Operation and Findings: EBL: 100 cc Complications: None Specimens: None Indications for procedure: Patient is a 72-year-old female who presents after a trip and fall with acute onset right hip pain and inability to ambulate. Options of management were discussed. Risks of surgery including but not limited to: Infection, nonunion or malunion, hardware malposition or failure, possible need for further surgery, neurovascular injury, and other unforeseen complications were all discussed. At this time the patient has consented to the procedure. Description of procedure: Patient was brought back to the operating room where general anesthesia then ensued. Patient was then positioned on the operating room fracture table with all bony prominences well padded. Patient was prepped and draped in standard sterile fashion. Preoperative antibiotics were given within 1 hour of incision. A timeout was performed to identify correct patient , side, site and procedure to be performed. At this time the fracture was reduced on the table with the use of traction and rotation. A small approximate 2 inch incision was made just proximal and posterior to the greater trochanter. A guidewire was then placed in the tip of the greater trochanter on the AP and lateral radiographs. This was advanced to the lesser trochanteric region. An opening reamer was then used to allow access to the femoral canal and advanced to the lesser trochanteric region. At this time an 11 mm diameter [employer] TFN nail was then placed and advanced into appropriate position on both AP and lateral radiographs. A small lateral based incision was made to allow the drill guides for the proximal screw to be placed through the subcutaneous tissue and fascia down to the lateral cortex. A guidewire was then placed in the femoral neck and into the femoral head in a center center position on AP and lateral radiographs. This was subsequently measured and drilled and then placed. This was verified to be in acceptable position on AP and lateral radiographs. The proximal locking screw was then tightened and backed off a half turn. The guides for the distal locking screw was then placed through a small lateral based incision. This was then drilled, measured and subsequently placed. Final x-rays were obtained which limited the fracture was in acceptable alignment and the hardware was in good position. The insertion handle was then removed. All wounds were thoroughly irrigated with normal saline laden with gentamicin. The subcutaneous tissue and fascia was closed with interrupted Vicryl sutures and the skin subsequently closed with emir. Sterile dressings were then applied. Patient was transferred off the operating room table and awoken from general anesthesia without complication. Disposition: Patient be partial weightbearing 50% of the right lower extremity. Tammy Brown MD Sep 21, 2017 07:47
== END 2017-09-19 14:11 | DRG 482 ==
LOC: NEPC 15:09 → NEDA 17:42 → N06B 21:33
PROVIDERS: ADMIT Internal Medicine; ATTEND Internal Medicine
PROC: 0QS606Z Reposition Right Upper Femur with Intramedullary Internal Fixation Device, Open Approach (ICD-10-PCS; principal; 2017-09-17 16:45)
DX: S72.141A Displaced intertrochanteric fracture of right femur, initial encounter for closed fracture (principal); J44.9 Chronic obstructive pulmonary disease, unspecified; M06.9 Rheumatoid arthritis, unspecified; K21.9 Gastro-esophageal reflux disease without esophagitis; W01.0XXA Fall on same level from slipping, tripping and stumbling without subsequent striking against object, initial encounter; F41.9 Anxiety disorder, unspecified; G89.29 Other chronic pain; M25.561 Pain in right knee; I25.10 Atherosclerotic heart disease of native coronary artery without angina pectoris; E78.5 Hyperlipidemia, unspecified; F32.9 Major depressive disorder, single episode, unspecified; H54.7 Unspecified visual loss; Z95.5 Presence of coronary angioplasty implant and graft; Z87.891 Personal history of nicotine dependence
CPT/HCPCS: 51702; 71045; 73502; 73564; 76000; 80053; 81001; 85025; 85027; 85610; 85730; 86850; 86900; 86901; 86920; 93005; 94150; C1713; J0131; J0690; J1100; J1170; J1580; J1650; J2270; J2405; J2710; J3010; J3370; J7120

== ENCOUNTER → 2017-10-21 | Outpatient (CLI) | payer MEDICARE, BC ==
[~2017-10-21] MED LIST changes: +ADVA100A INH; -BENZ100 PO; -CELE200C PO; +COMMODE 3-IN-11 MIS; +CYCL10TA PO; +ECASA81 PO; +FERR325T20 PO; +FURO20TA PO; -LIPI40TA PO; +MAPA500T13 PO; +METH2.5T PO; +OXYC1TAB36 PO; +POTA-163 PO; +ROSU1TAB6 PO; +SULF500T34 PO; -SYMB80AE INH; -TRAM50TA PO; +VENTAER INH; +WHEEMIS3
[2017-10-21 13:31] LABS: AUTOMATED NEUTROPHIL # 2.3 TH/MM3 (1.8-7.7); BASOPHIL % 0.9 % (0.0-2.0); EOSINOPHIL # 0.1 TH/MM3 (0-0.4); EOSINOPHIL % 2.6 % (0.0-4.0); HEMATOCRIT 34.9 % (35.0-46.0); HEMOGLOBIN 11.6 GM/DL (11.6-15.3); LYMPH % 29.1 % (9.0-44.0); LYMPHOCYTE # 1.1 TH/MM3 (1.0-4.8); MEAN CELL VOLUME 96.5 FL (80.0-100.0); MEAN CORPUSCULAR HEMOGLOBIN 32.1 PG (27.0-34.0); MEAN CORPUSCULAR HGB CONC 33.2 % (32.0-36.0); MEAN PLATELET VOLUME 8.1 FL (7.0-11.0); MONOCYTE # 0.3 TH/MM3 (0-0.9); NEUT % 60.4 % (16.0-70.0); PLATELET COUNT 222 TH/MM3 (150-450); RED BLOOD COUNT 3.62 MIL/MM3 (4.00-5.30); RED CELL DISTRIBUTION WIDTH 15.2 % (11.6-17.2); WHITE BLOOD COUNT 3.8 TH/MM3 (4.0-11.0)
[2017-10-21 13:46] LABS: AST (GOT) 21 U/L (15-37); BICARBONATE 26.9 MEQ/L (21.0-32.0); BLOOD UREA NITROGEN 9 MG/DL (7-18); CALCIUM 9.3 MG/DL (8.5-10.1); CHLORIDE 104 MEQ/L (98-107); CREATININE 0.56 MG/DL (0.50-1.00); GLOMERULAR FILTRATION RATE 106 ML/MIN (>89); GLUCOSE,FASTING 94 MG/DL (74-99); SODIUM (NA) 139 MEQ/L (136-145)
[2017-10-21 13:47] LABS: CHOLESTEROL 142 MG/DL (120-200)
[2017-10-21 13:58] LABS: ALKALINE PHOSPHATASE 87 U/L (45-117); ALT (GPT) 16 U/L (10-53); CHOLESTEROL/ HDL RATIO 2.16 RATIO; HDL CHOLESTEROL 65.5 MG/DL (40.0-60.0); LDL CHOLESTEROL 54 MG/DL (0-99); TOTAL BILIRUBIN ADULT 0.5 MG/DL (0.2-1.0); TRIGLYCERIDES 111 MG/DL (42-150)
== END ==
LOC: PLAB 09:41
PROVIDERS: ATTEND Family Medicine
DX: M05.89 Other rheumatoid arthritis with rheumatoid factor of multiple sites (principal); K21.9 Gastro-esophageal reflux disease without esophagitis; I25.10 Atherosclerotic heart disease of native coronary artery without angina pectoris; I10 Essential (primary) hypertension; R11.0 Nausea; E78.00 Pure hypercholesterolemia, unspecified; Z79.899 Other long term (current) drug therapy
CPT/HCPCS: 36415; 80053; 80061; 84443; 85025; 85652

== ENCOUNTER → 2018-01-18 | Outpatient (CLI) | payer MEDICARE, BC ==
[2018-01-18 14:35] LABS: HEMATOCRIT 35.3 % (35.0-46.0); HEMOGLOBIN 11.6 GM/DL (11.6-15.3); MEAN CELL VOLUME 99.6 FL (80.0-100.0); MEAN CORPUSCULAR HEMOGLOBIN 32.8 PG (27.0-34.0); MEAN CORPUSCULAR HGB CONC 32.9 % (32.0-36.0); MEAN PLATELET VOLUME 8.2 FL (7.0-11.0); PLATELET COUNT 214 TH/MM3 (150-450); RED BLOOD COUNT 3.55 MIL/MM3 (4.00-5.30); RED CELL DISTRIBUTION WIDTH 18.5 % (11.6-17.2); WHITE BLOOD COUNT 5.5 TH/MM3 (4.0-11.0)
[2018-01-18 15:04] LABS: WESTERGREN SEDIMENTATION RATE 14 mm/hr (0-30)
== END ==
LOC: PLAB 11:59
PROVIDERS: ATTEND Internal Medicine Rheumatology
DX: M05.89 Other rheumatoid arthritis with rheumatoid factor of multiple sites (principal); Z79.899 Other long term (current) drug therapy
CPT/HCPCS: 36415; 85027; 85652; 86140